=== PATIENT | female | born 1935 | race Caucasian/White ===

== ENCOUNTER 2020-12-18 08:31 | Inpatient (IN) | payer MEDICARE, OTHER ==
[2020-12-18] MEDS ORDERED: Lactated Ringers 1,000 ML IV SCH (09:00)
--- NOTE | 2020-12-18 09:34 | CR ---
Indication: Weakness Comparison: None available. Technique: Single AP view chest Findings: There is hyperinflation and chronic interstitial change. There is basilar atelectasis and parenchymal scar without dense consolidation, effusion or pneumothorax. The cardiac silhouette is mildly prominent. The bony thorax is grossly intact. Impression: Hyperinflation and chronic interstitial changes with basilar atelectasis and/or parenchymal scar without evidence of dense consolidation. Dictated by Tae Bueno MD @ 12/18/2020 9:33:04 AM (Electronically Signed)
[2020-12-18 09:48] LABS: BLOOD UREA NITROGEN,BUN 18 mg/dL (7.0-18.0); CHLORIDE,CL 103 mmol/L (98-107); GLUCOSE RANDOM 125 mg/dL (74-106); POTASSIUM,K 4.2 mmol/L (3.5-5.1); SODIUM,NA 138 mmol/L (136-145)
[2020-12-18] MEDS ORDERED: Famotidine 20 MG/2 ML SDV IVPUSH ONE (10:26)
[2020-12-18] MEDS ORDERED: Pantoprazole 80 MG in Sodium Chloride 0.9% 20 ML IVPUSH ONE (10:26)
--- NOTE | 2020-12-18 10:53 | EDM.PDOC ---
ED HPI GENERAL MEDICAL PROBLEM - General Chief Complaint: General Stated Complaint: EMS Time Seen by Provider: 12/18/20 08:43 - History of Present Illness INITIAL COMMENTS - FREE TEXT/NARRATIVE: CHIEF COMPLAINT(S): "I do not know." HISTORY OF PRESENT ILLNESS: This is a 85-year-old man without any significant past medical history who has not been evaluated by a physician in approximately 50 years who comes to the emergency department with a chief complaint of "I do not know." The patient states that she does not know why she is here in the emergency department. She states that she has been getting weak and this morning she was unable to walk. She states that has been progressive for approximately 1 month. She states that she has not had any increased weight loss and states that her appetite is not changed. She states that she has not had any falls denies any head injury, loss of consciousness. She denies any chest pain or any pain at all throughout her body. She denies any numbness or tingling, urinary incontinence, bowel incontinence or saddle anesthesia. She denies any recent travel recent surgery or prior history of DVT or PE. She states that she is not any medications and overall feels well except that she just cannot walk. REVIEW OF SYSTEMS: Constitutional: Positive for weakness denies fever, chills. Eyes: Denies eye pain Ears, Nose, Mouth, & Throat: Denies earache Cardiovascular: Denies chest pain Respiratory: Denies shortness of breath Gastrointestinal: Denies Nausea, vomiting, diarrhea, hematochezia. Genitourinary: Denies hematuria Skin:Denies a rash MSK: Positive for decreased ability to walk. Denies joint pain Neurological: Denies blurred vision, numbness, tingling, trouble speaking, trouble swallowing Psychiatric: Denies depression PAST MEDICAL HISTORY: As per history of present illness and as reviewed below otherwise noncontributory. SURGICAL HISTORY: As per history of present illness and as reviewed below otherwise noncontributory. SOCIAL HISTORY: As per history of present illness and as reviewed below otherwise noncontributory. FAMILY HISTORY: As per history of present illness and as reviewed below otherwise noncontributory. EXAMINATION OF ORGAN SYSTEMS/BODY AREAS: Constitutional: Blood pressure is 128/44, heart rate 106, respiratory rate 20 with an oxygen saturation of 100% on room air. Temperature 35.8 General: Pale appearing elderly woman who is in no acute distress Psychiatric: Appropriate mood and affect. Eyes: No scleral icterus or conjunctival erythema pupils are equal round and reactive to light. Extraocular movements intact. No nystagmus. Conjunctiva is pale. ENMT: Moist mucous membranes. No pharyngeal erythema tongue protrudes midline. Cardiovascular: Tachycardic but regular no gallops, murmurs, or rubs. Bilateral upper extremity pulses symmetric and intact. No peripheral edema. No JVD. Respiratory: Lungs clear to auscultation bilaterally. No wheezes, rales, or rhonchi. Gastrointestinal: Soft, non-tender, non-distended. Normoactive bowel sounds Genitourinary: No suprapubic tenderness Musculoskeletal: Normal range of motion. Skin: No lesions or abrasions. Neurological: AOx4. CN grossly intact. Stregth 5/5 in bilateral upper and lower extremity. Sensation is intact bilaterally in upper and lower extremity. Finger to nose, heel to blevins, rapid alternating movements intact. MEDICAL DECISION MAKING AND COURSE IN THE ED WITH INTERPRETATION/REVIEW OF DIAGNOSTIC STUDIES: This is a 85-year-old woman without any reported past medical history who has not visited with a physician in approximately 50 years who comes to the emergency department with acute weakness with decreased ability to walk. At this time the patient is neurologically intact. The patient is tachycardic. At this time differential remains broad including ACS, hypothyroidism, GI bleed, malignancy. Will obtain labs including CBC, CMP, Covid, CPK, urine drug screen, serum drug screen and coags. Will obtain a urinalysis. At this time other than the tachycardia it is uncertain as to what is causing her weakness therefore we will provide the patient with 1 L of lactated Ringer's bolus. We will reevaluate after labs and imaging including a chest x-ray. EKG was obtained which did not reveal any acute signs of ischemia. Cardiac monitoring at this time did reveal sinus tachycardia and pulse oximetry with good waveform was 100% on room air. Laboratory: CBC reveals a leukocytosis of 18.21 with segmented neutrophils, hemoglobin of 4.2 and hematocrit of 16.3 with thrombocytopenia at 42. There is increased polychromasia, poikilocytosis, target cells, teardrop cells and elliptocytes. INR is normal. CMP reveals hypocalcemia at 7.6, hyperbilirubinemia at 1.1 and hypoalbuminemia at 2.7 otherwise unremarkable. CPK is normal. Troponin is negative. Serum alcohol level is negative. Covid is negative. The radiological images were viewed by myself along with reading the report from the radiologist. Chest x-ray reveals hyperinflation and chronic interstitial changes with basilar atelectasis without consolidation. After labs I did have a discussion with the patient that I would need to perform a rectal examination. Rectal examination was performed with RN mercerizer in presence. The patient did have dried blood in her panties. There did not appear to be any bleeding from her vagina and she denied any vaginal bleeding. Rectal examination did reveal guaiac positive stool and red stool. Rectal tone was appropriate. Given her hemoglobin and positive stool I did discuss with patient that I do believe she is experiencing a GI bleed versus a malignancy given her laboratory results. I did discuss blood transfusion with her at this time. She was amenable to this and did complete a consent form. Therefore I ordered 2 units of PRBCs and 1 of platelets. Will obtain a CT abdomen pelvis for further evaluation. I did discuss admission with the patient at this time and she was amenable to this plan. The radiological images were viewed by myself along with reading the report from the radiologist. CT abdomen pelvis with contrast reveals wall thickening of the rectum with prominent surrounding inflammatory fat stranding and free fluid suggesting proctitis. Enhancement within the anal canal which could possibly represent internal hemorrhoids. There is mild hepatomegaly with diffuse hepatic steatosis. Moderate splenomegaly with multiple small low-attenuation lesions. An underlying lymphoproliferative process cannot be excluded. There is a 1.3 cystic lesion in the right adnexa and small bilateral pleural effusions and diffuse wall edema. After imaging I did contact Dr. Robb who accepted the patient for admission. I did have a discussion with the patient at bedside regarding the differential di agnosis including possible need for colonoscopy and bone marrow biopsy. She states that she just wants to live as she has always lived and probably likely will not get these procedures completed however she was still amenable to blood transfusion and admission at this time this was communicated with Dr. Robb. DISPOSITION: Patient was admitted to the hospital in stable condition CONDITION: Serious PROCEDURES: None FINAL IMPRESSION(S)/DIAGNOSES: 1. Acute blood loss anemia secondary to GI bleed versus proctitis 2. Acute leukocytosis, possibly secondary to malignancy 3. Acute thrombocytopenia 4. Hypoalbuminemia secondary to protein calorie malnutrition Critical Care Procedure Note Authorized and performed by: Leroy Garcia M.D. Critical Care Time: 45 minutes Due to a high probability of clinically significant, life threatening deterioration, the patient required my highest level of preparedness to intervene emergently and I personally spent this critical care time directly and personally managing the patient. This critical care time included obtaining a history, examining the patient, pulse oximetry; ordering and review of studies; arranging urgent treatment with development of a management plan; evaluation of a patients reponse to treatment; frequent assessment; and discussions with other providers. This critical care time was performed to assess and manage the high probability of imminent, life threatening deterioration that could result in multiorgan failure. It was exclusive of separate billable procedures and treating other patients. Please see MDM section and rest of the note for further information on patient assessment and treatment. Please see MDM section and rest of the note for further information on patient assessment and treatment. Leroy Garcia M.D. - Related Data Allergies Allergy/AdvReac Type Severity Reaction Status Date / Time No Known Allergies Allergy Verified 12/18/20 15:55 Home Meds: Home Meds . [No Known Home Meds] 12/18/20 [History] Social & Family History - Tobacco Use Second Hand Smoke Exposure: No - Caffeine Use Caffeine Use: Reports: None - Recreational Drug Use Recreational Drug Use: No ED ROS GENERAL - Review of Systems Review Of Systems: See Below ED EXAM, GENERAL - Physical Exam Exam: See Below Course - Vital Signs Last Recorded V/S: Last Vital Signs Temp 36.9 C 12/18/20 17:27 Pulse 67 12/18/20 17:27 Resp 16 12/18/20 17:27 BP 112/52 L 12/18/20 17:27 Pulse Ox 95 12/18/20 17:27 - Orders/Labs/Meds Orders: Active Orders 24 hr Category Date Time Status Verify Patient Consent Obtain [RC] ASDIRECTED Care 12/18/20 10:10 Active Verify Patient Consent Obtain [RC] ASDIRECTED Care 12/18/20 10:10 Active PLATELETS [facility] [BBK] Stat Lab 12/18/20 10:22 Results RED BLOOD CELLS LP [BBK] Stat Lab 12/18/20 10:22 Results TYPE AND SCREEN [BBK] Stat Lab 12/18/20 10:22 Results Transfuse Platelets [COMM] Stat Ot 12/18/20 10:09 Ordered Transfuse Red Blood Cells [COMM] Stat Ot 12/18/20 10:09 Ordered Medication Orders Dextrose/Water (50% Dextrose In Water 50 Ml Syringe) 50 ml IVPUSH ASDIRECTED PRN PRN Reason: Hypoglycemia Glucagon (Glucagon,Human Recombinant 1 Mg Vial) 1 mg IM ASDIRECTED PRN PRN Reason: Hypoglycemia Ceftriaxone Sodium/Dextrose 1 (gm/ Premix) 50 mls @ 100 mls/hr IV Q24H ARCHANA Last Admin: 12/18/20 18:20 Dose: 100 mls/hr Documented by: PUEPBRI Pantoprazole Sodium 40 mg/ (Sodium Chloride) 10 mls @ 300 mls/hr IV Q24H [facility] Labs: Laboratory Tests 12/18/20 12/18/20 12/18/20 Range/Units 08:40 08:40 08:40 WBC 18.21 H (4.0-11.0) K/uL RBC 2.38 L (4.30-5.90) M/uL Hgb 4.2 L* (12.0-16.0) g/dL Hct 16.3 L (36.0-46.0) % MCV 68.5 L (80.0-98.0) fL MCH 17.6 L (27.0-32.0) pg MCHC 25.8 L (31.0-37.0) g/dL RDW Std Deviation 56.9 (28.0-62.0) fl RDW Coeff of Chuy 24 H (11.0-15.0) % Plt Count 42 L (150-400) K/uL Add Manual Diff YES Neutrophils % (Manual) 76 (48.0-80.0) % Band Neutrophils % 6 % Lymphocytes % (Manual) 14 L (16.0-40.0) % Monocytes % (Manual) 4 (0.0-15.0) % Nucleated RBC % 7.6 /100WBC Absolute Seg Neuts 13.8 H (1.4-5.7) Band Neutrophils # 1.1 Lymphocytes # (Manual) 2.5 H (0.6-2.4) Monocytes # (Manual) 0.7 (0.0-0.8) Nucleated RBCs # 1 K/uL Platelet Estimate DECREASED Polychromasia 2+ MODERATE Poikilocytosis 3+ MARKED Target Cells 1+ SLIGHT Tear Drop Cells 2+ MODERATE Elliptocytes 1+ SLIGHT INR 1.17 Sodium 138 (136-145) mmol/L Potassium 4.2 (3.5-5.1) mmol/L Chloride 103 (98-107) mmol/L Carbon Dioxide 24.0 (21.0-32.0) mmol/L BUN 18 (7.0-18.0) mg/dL Creatinine 0.8 (0.6-1.0) mg/dL Est Cr Clr Drug Dosing 41.57 mL/min Estimated GFR (MDRD) > 60.0 ml/min Glucose 125 H (74-106) mg/dL Calcium 7.6 L (8.5-10.1) mg/dL Magnesium 2.1 (1.8-2.4) mg/dL Total Bilirubin 1.1 H (0.2-1.0) mg/dL AST 13 L (15-37) IU/L ALT 12 L (14-63) IU/L Alkaline Phosphatase 78 (46-116) U/L Creatine Kinase 49 (26-308) U/L Troponin I < 0.050 (0.000-0.056) ng/mL Total Protein 6.3 L (6.4-8.2) g/dL Albumin 2.7 L (3.4-5.0) g/dL Globulin 3.6 (2.6-4.0) g/dL Albumin/Globulin Ratio 0.8 L (0.9-1.6) TSH, Ultra Sensitive 3.61 (0.36-3.74) uIU/mL Ethyl Alcohol <3 mg/dL SARS-CoV-2 RNA (HEMAL) (NEGATIVE) Blood Type Antibody Screen Crossmatch 12/18/20 12/18/20 Range/Units 10:22 10:30 WBC (4.0-11.0) K/uL RBC (4.30-5.90) M/uL Hgb (12.0-16.0) g/dL Hct (36.0-46.0) % MCV (80.0-98.0) fL MCH (27.0-32.0) pg MCHC (31.0-37.0) g/dL RDW Std Deviation (28.0-62.0) fl RDW Coeff of Chuy (11.0-15.0) % Plt Count (150-400) K/uL Add Manual Diff Neutrophils % (Manual) (48.0-80.0) % Band Neutrophils % % Lymphocytes % (Manual) (16.0-40.0) % Monocytes % (Manual) (0.0-15.0) % Nucleated RBC % /100WBC Absolute Seg Neuts (1.4-5.7) Band Neutrophils # Lymphocytes # (Manual) (0.6-2.4) Monocytes # (Manual) (0.0-0.8) Nucleated RBCs # K/uL Platelet Estimate Polychromasia Poikilocytosis Target Cells Tear Drop Cells Elliptocytes INR Sodium (136-145) mmol/L Potassium (3.5-5.1) mmol/L Chloride (98-107) mmol/L Carbon Dioxide (21.0-32.0) mmol/L BUN (7.0-18.0) mg/dL Creatinine (0.6-1.0) mg/dL Est Cr Clr Drug Dosing mL/min Estimated GFR (MDRD) ml/min Glucose (74-106) mg/dL Calcium (8.5-10.1) mg/dL Magnesium (1.8-2.4) mg/dL Total Bilirubin (0.2-1.0) mg/dL AST (15-37) IU/L ALT (14-63) IU/L Alkaline Phosphatase (46-116) U/L Creatine Kinase (26-308) U/L Troponin I (0.000-0.056) ng/mL Total Protein (6.4-8.2) g/dL Albumin (3.4-5.0) g/dL Globulin (2.6-4.0) g/dL Albumin/Globulin Ratio (0.9-1.6) TSH, Ultra Sensitive (0.36-3.74) uIU/mL Ethyl Alcohol mg/dL SARS-CoV-2 RNA (HEMAL) NEGATIVE (NEGATIVE) Blood Type A POSITIVE Antibody Screen NEGATIVE Crossmatch See Detail Meds: Medications Generic Name Dose Route Start Last Admin Trade Name Freq PRN Reason Stop Dose Admin Dextrose/Water 50 ml 12/18/20 16:35 50% Dextrose In Water 50 Ml Syringe IVPUSH ASDIRECTED PRN Hypoglycemia Glucagon 1 mg 12/18/20 16:35 Glucagon,Human Recombinant 1 Mg Vial IM ASDIRECTED PRN Hypoglycemia Ceftriaxone Sodium/Dextrose 1 50 mls @ 100 mls/hr 12/18/20 18:00 12/18/20 18:20 gm/ Premix IV 100 mls/hr Q24H ARCHANA Administration Pantoprazole Sodium 40 mg/ 10 mls @ 300 mls/hr 12/19/20 09:00 Sodium Chloride IV Q24H ARCHANA Discontinued Medications Generic Name Dose Route Start Last Admin Trade Name Froy PRN Reason Stop Dose Admin Famotidine 20 mg 12/18/20 10:26 12/18/20 10:36 Famotidine 20 Mg/2 Ml Sdv IVPUSH 12/18/20 10:27 20 mg ONETIME ONE Administration Lactated Ringer's 1,000 mls @ 999 mls/hr 12/18/20 09:00 12/18/20 09:03 Ringers, Lactated IV 999 mls/hr ASDIRECTED ARCHANA Administration Pantoprazole Sodium 80 mg/ 20 mls @ 420 mls/hr 12/18/20 10:26 12/18/20 10:36 Sodium Chloride IVPUSH 12/18/20 10:28 420 mls/hr ONETIME ONE Administration Insulin Aspart 0 unit 12/18/20 17:00 12/18/20 17:33 Insulin Aspart 100 Units/Ml 3 Ml Pen SUBCUT Not Given TIDAC [facility] Protocol Iopamidol 100 ml 12/18/20 12:21 12/18/20 12:22 Iopamidol 755 Mg/Ml 500 Ml Multipack Bottle IVPUSH 12/18/20 12:22 100 ml ONETIME STA Administration Departure - Departure Time of Disposition: 13:30 Disposition: Admitted As Inpatient 65 Condition: Serious Clinical Impression: Thrombocytopenia, Anemia - Discharge Information Sepsis Event Note (ED) - Evaluation Sepsis Screening Result: No Definite Risk - Focused Exam Vital Signs: Vital Signs Temp Pulse Resp BP Pulse Ox 12/18/20 09:05 35.8 C L 106 H 20 128/44 L 100 - My Orders Last 24 Hours: My Active Orders 12/18/20 10:09 Transfuse Platelets [COMM] Stat Transfuse Red Blood Cells [COMM] Stat 12/18/20 10:10 Verify Patient Consent Obtain [RC] ASDIRECTED Verify Patient Consent Obtain [RC] ASDIRECTED 12/18/20 10:22 [facility]TS [facility] [BBK] Stat RED BLOOD CELLS LP [BBK] Stat TYPE AND SCREEN [BBK] Stat - Assessment/Plan Last 24 Hours: My Active Orders 12/18/20 10:09 Transfuse Platelets [COMM] Stat Transfuse Red Blood Cells [COMM] Stat 12/18/20 10:10 Verify Patient Consent Obtain [RC] ASDIRECTED Verify Patient Consent Obtain [RC] ASDIRECTED 12/18/20 10:22 PL[facility]LETS [facility] [BBK] Stat RED BLOOD CELLS LP [BBK] Stat TYPE AND SCREEN [BBK] Stat
--- NOTE | 2020-12-18 10:54 | PCM.EKG ---
#1 Interpretation EKG Date: 12/18/20 Time: 08:53 Rhythm: NSR Rate (Beats/Min): 110 Vail: LAD-Left Vail Deviation P-Wave: Present QRS: Normal ST-T: Normal QT: Normal Comparison: NA - No Prior EKG EKG Interpretation Comments: Sinus Tachycardia
[2020-12-18] MEDS ORDERED: Iopamidol 755 MG/ML 500 ML Multipack Bottle IVPUSH STA (12:21)
--- NOTE | 2020-12-18 13:28 | CT ---
INDICATION: GI bleed, anemia. TECHNIQUE: CT of the abdomen and pelvis with 100 cc Isovue 370 IV contrast. Coronal and sagittal reconstructions. COMPARISON: None. FINDINGS: The liver is mildly enlarged measuring 19.1 cm in length. Diffuse hepatic steatosis. Few small low-attenuation lesions in the liver have the appearance of cysts. The spleen is moderately enlarged measuring 16.2 cm in length. There are multiple small low-attenuation lesions throughout the spleen which are too small to characterize. Splenule. The gallbladder, pancreas, and adrenal glands are negative. Hepatic and portal veins are patent. Symmetric enhancement of the kidneys. Small low-attenuation lesion in the right kidney most likely represents a cyst. No hydronephrosis or ureteral dilation. No obstructing urinary calculi identified. Small phlebolith adjacent to the distal left ureter. Distended urinary bladder. The uterus is normal in appearance. There is a 1.3 cm cystic lesion in the right adnexa (series 201, image 126). No abnormality in the left adnexa. Mild wall thickening of the gastric antrum could be inflammatory. No small bowel dilation. Sigmoid diverticulosis without evidence of diverticulitis. Scattered hyperdensities throughout sigmoid colon could be related to stool. Wall thickening of the rectum with prominent surrounding inflammatory fat stranding and free fluid suggesting proctitis (series 201 image 145). Enhancement within the anal canal could possibly represent internal hemorrhoids. No pneumatosis or intraperitoneal free air. The appendix is not identified. Aortoiliac vascular calcifications. Circumaortic left renal vein. No lymphadenopathy. Probable sebaceous cyst in the left mons pubis. Diffuse body wall edema. The bones are unremarkable. Small bilateral pleural effusions and mild bibasilar atelectasis. Interlobular septal thickening in the lung bases likely due to edema. The heart is mildly prominent in size. IMPRESSION: 1. Wall thickening of the rectum with prominent surrounding inflammatory fat stranding and free fluid suggests proctitis. Enhancement within the anal canal which could possibly represent internal hemorrhoids. 2. Mild hepatomegaly with diffuse hepatic steatosis. 3. Moderate splenomegaly with multiple small low-attenuation lesions. An underlying lymphoproliferative process cannot be excluded. 4. 1.3 cm cystic lesion in the right adnexa. 5. Small bilateral pleural effusions and diffuse body wall edema. Please note that all CT scans at this facility use dose modulation, iterative reconstruction, and/or weight-based dosing when appropriate to reduce radiation dose to as low as reasonably achievable. Dictated by Juanita Paredes MD @ 12/18/2020 1:26:55 PM (Electronically Signed)
[2020-12-18] MEDS ORDERED: Glucagon,Human Recombinant 1 MG Vial IM PRN (16:35)
[2020-12-18] MEDS ORDERED: 50% Dextrose in Water 50 ML Syringe IVPUSH PRN (16:35)
[2020-12-18] MEDS ORDERED: Insulin Aspart 100 Units/ML 3 ML Pen SUBCUT SCH (17:00)
--- NOTE | 2020-12-18 18:06 | PCM.HP.2 ---
H&P History of Present Illness - General Date of Service: 12/18/20 Admit Problem/Dx: Admission Diagnosis/Problem Admission Diagnosis/Problem Anemia due to blood loss - History of Present Illness Initial Comments - Free Text/Narative: The patient is an 85-year-old female on day one of service who was admitted to the hospital due to a decreased hemoglobin of 4.2, a decreased hematocrit of 16.3, a decreased platelet count of 42, and increased white blood cell count of 18.21. Upon interview today the patient admits for the past 3 months she has been having difficulty walking which has progressed to the point where yesterday she was no longer able to walk by herself and needed support by her . She says that when she stands from a seated position she starts to feel dizzy, and also feels dizzy upon exertion. She denies any chest pain, palpitations, shortness of breath, abdominal pain, headaches, or any issues with urination and/or defecation. Her chest x-ray shows hyperinflation, and chronic interstitial changes consistent with basilar atelectasis. Her EKG shows sinus tachycardia. Her abdominal CT shows an enlarged liver with diffuse hepatic steatosis, liver cysts, moderate enlargement of the cyst 16.2 cm in length, a right kidney cyst with no hydronephrosis or ureter dilation, a distended urinary bladder, a cystic lesion in the right adnexa, mild wall thickening of the gastric antrum, sigmoid diverticulosis, proctitis, and bilateral small pleural effusions. Her CBC shows a white blood cell of 18.21, hemoglobin of 4.2, hematocrit of 16.3, platelets of 42. Her CMP shows abnormal values for glucose of 125, calcium of 7.6, AST of 13, ALT of 12, albumin 2.7 Her urine analysis shows large occult blood, positive nitrite, moderate leukocyte esterase. In the emergency room the patient received famotidine once 20 mg IV, pantoprazole once 80 mg IV, a lactated Ringer's bolus of 1000 mL, and orders for 2 units of red blood cells to be transfused. Both have been administered, one order of platelets is also to be transfused but will not occur until tomorrow morning. - Related Data Allergies/Adverse Reactions: Allergies Allergy/AdvReac Type Severity Reaction Status Date / Time No Known Allergies Allergy Verified 12/18/20 15:55 Home Medications: Home Meds . [No Known Home Meds] 12/18/20 [History] Past Medical History HEENT History: Reports: Other (See Below) Other HEENT History: pt. states she thinks she has cataract to left eye that is blurring her vision Gastrointestinal History: Reports: None - Infectious Disease History Infectious Disease History: Reports: None - Past Surgical History GI Surgical History: Reports: Appendectomy Social & Family History - Family History Other Cardiac Family History: dad had heart attack - Tobacco Use Tobacco Use Status *Q: Former Tobacco User Used Tobacco, but Quit: Yes Month/Year Tobacco Last Used: 03/1959 Second Hand Smoke Exposure: No - Caffeine Use Caffeine Use: Reports: Coffee, Soda - Recreational Drug Use Recreational Drug Use: No H&P Review of Systems - Review of Systems: Review Of Systems: See Below General: Denies: Fever, Chills, Fatigue Pulmonary: Denies: Shortness of Breath, Wheezing, Pleuritic Chest Pain, Cough Cardiovascular: Denies: Chest Pain, Palpitations, Dyspnea on Exertion Gastrointestinal: Denies: Abdominal Pain Genitourinary: Denies: Dysuria, Frequency, Burning, Pain Psychiatric: Denies: Confusion Neurological: Reports: Dizziness Exam - Exam Exam: See Below - Vital Signs Vital Signs: Last Vital Signs Temp 98.5 F 12/18/20 17:27 Pulse 67 12/18/20 17:27 Resp 16 12/18/20 17:27 BP 112/52 L 12/18/20 17:27 Pulse Ox 95 12/18/20 17:27 Weight: 102 lb 8 oz - Exam General: Alert, Oriented, Cooperative HEENT: Mucosa Moist & [place] Neck: Trachea Midline Lungs: Clear to Auscultation, Normal Respiratory Effort, Decreased Breath Sounds Cardiovascular: Regular Rate, Regular Rhythm GI/Abdominal Exam: Normal Bowel Sounds, Soft, Non-Tender, No Organomegaly - Patient Data Lab Results Last 24 hrs: Laboratory Results - last 24 hr 12/18/20 12/18/20 12/18/20 Range/Units 08:40 08:40 08:40 WBC 18.21 H (4.0-11.0) K/uL RBC 2.38 L (4.30-5.90) M/uL Hgb 4.2 L* (12.0-16.0) g/dL Hct 16.3 L (36.0-46.0) % MCV 68.5 L (80.0-98.0) fL MCH 17.6 L (27.0-32.0) pg MCHC 25.8 L (31.0-37.0) g/dL RDW Std Deviation 56.9 (28.0-62.0) fl RDW Coeff of [place] 24 H (11.0-15.0) % Plt Count 42 L (150-400) K/uL Add Manual Diff YES Neutrophils % (Manual) 76 (48.0-80.0) % Band Neutrophils % 6 % Lymphocytes % (Manual) 14 L (16.0-40.0) % Monocytes % (Manual) 4 (0.0-15.0) % Nucleated RBC % 7.6 /100WBC Absolute Seg Neuts 13.8 H (1.4-5.7) Band Neutrophils # 1.1 Lymphocytes # (Manual) 2.5 H (0.6-2.4) Monocytes # (Manual) 0.7 (0.0-0.8) Nucleated RBCs # 1 K/uL Platelet Estimate DECREASED Polychromasia 2+ MODERATE Poikilocytosis 3+ MARKED Target Cells 1+ SLIGHT Tear Drop Cells 2+ MODERATE Elliptocytes 1+ SLIGHT INR 1.17 Sodium 138 (136-145) mmol/L Potassium 4.2 (3.5-5.1) mmol/L Chloride 103 (98-107) mmol/L Carbon Dioxide 24.0 (21.0-32.0) mmol/L BUN 18 (7.0-18.0) mg/dL Creatinine 0.8 (0.6-1.0) mg/dL Est Cr Clr Drug Dosing 41.57 mL/min Estimated GFR (MDRD) > 60.0 ml/min Glucose 125 H (74-106) mg/dL Calcium 7.6 L (8.5-10.1) mg/dL Magnesium 2.1 (1.8-2.4) mg/dL Total Bilirubin 1.1 H (0.2-1.0) mg/dL AST 13 L (15-37) IU/L ALT 12 L (14-63) IU/L Alkaline Phosphatase 78 (46-116) U/L Creatine Kinase 49 (26-308) U/L Troponin I < 0.050 (0.000-0.056) ng/mL Total Protein 6.3 L (6.4-8.2) g/dL Albumin 2.7 L (3.4-5.0) g/dL Globulin 3.6 (2.6-4.0) g/dL Albumin/Globulin Ratio 0.8 L (0.9-1.6) TSH, Ultra Sensitive 3.61 (0.36-3.74) uIU/mL Urine Color Urine Appearance Urine pH (5.0-8.0) Ur Specific [place] (1.001-1.035) Urine Protein (NEGATIVE) mg/dL Urine Glucose (UA) (NEGATIVE) mg/dL Urine Ketones (NEGATIVE) mg/dL Urine Occult Blood (NEGATIVE) Urine Nitrite (NEGATIVE) Urine Bilirubin (NEGATIVE) Urine Urobilinogen (<2.0) EU/dL Ur Leukocyte Esterase (NEGATIVE) Urine RBC (0-2/HPF) Urine WBC (0-5/HPF) Ur Epithelial Cells (NONE-FEW) Urine Bacteria (NEGATIVE) Urine Mucus (NONE-MOD) Urine Opiates Screen (NEGATIVE) Ur Oxycodone Screen (NEGATIVE) Urine Methadone Screen (NEGATIVE) Ur Barbiturates Screen (NEGATIVE) Ur Phencyclidine Scrn (NEGATIVE) Ur Amphetamine Screen (NEGATIVE) U Methamphetamines Scrn (NEGATIVE) U Benzodiazepines Scrn (NEGATIVE) U Cocaine Metab Screen (NEGATIVE) U Marijuana (THC) Screen (NEGATIVE) Ethyl Alcohol <3 mg/dL SARS-CoV-2 RNA (HEMAL) (NEGATIVE) Blood Type Antibody Screen Crossmatch 12/18/20 12/18/20 12/18/20 Range/Units 10:22 10:30 14:50 WBC (4.0-11.0) K/uL RBC (4.30-5.90) M/uL Hgb (12.0-16.0) g/dL Hct (36.0-46.0) % MCV (80.0-98.0) fL MCH (27.0-32.0) pg MCHC (31.0-37.0) g/dL RDW Std Deviation (28.0-62.0) fl RDW Coeff of [place] (11.0-15.0) % Plt Count (150-400) K/uL Add Manual Diff Neutrophils % (Manual) (48.0-80.0) % Band Neutrophils % % Lymphocytes % (Manual) (16.0-40.0) % Monocytes % (Manual) (0.0-15.0) % Nucleated RBC % /100WBC Absolute Seg Neuts (1.4-5.7) Band Neutrophils # Lymphocytes # (Manual) (0.6-2.4) Monocytes # (Manual) (0.0-0.8) Nucleated RBCs # K/uL Platelet Estimate Polychromasia Poikilocytosis Target Cells Tear Drop Cells Elliptocytes INR Sodium (136-145) mmol/L Potassium (3.5-5.1) mmol/L Chloride (98-107) mmol/L Carbon Dioxide (21.0-32.0) mmol/L BUN (7.0-18.0) mg/dL Creatinine (0.6-1.0) mg/dL Est Cr Clr Drug Dosing mL/min Estimated GFR (MDRD) ml/min Glucose (74-106) mg/dL Calcium (8.5-10.1) mg/dL Magnesium (1.8-2.4) mg/dL Total Bilirubin (0.2-1.0) mg/dL AST (15-37) IU/L ALT (14-63) IU/L Alkaline Phosphatase (46-116) U/L Creatine Kinase (26-308) U/L Troponin I (0.000-0.056) ng/mL Total Protein (6.4-8.2) g/dL Albumin (3.4-5.0) g/dL Globulin (2.6-4.0) g/dL Albumin/Globulin Ratio (0.9-1.6) TSH, Ultra Sensitive (0.36-3.74) uIU/mL Urine Color YELLOW Urine Appearance CLOUDY Urine pH 6.0 (5.0-8.0) Ur Specific [place] 1.015 (1.001-1.035) Urine Protein TRACE H (NEGATIVE) mg/dL Urine Glucose (UA) NEGATIVE (NEGATIVE) mg/dL Urine Ketones NEGATIVE (NEGATIVE) mg/dL Urine Occult Blood LARGE H (NEGATIVE) Urine Nitrite POSITIVE H (NEGATIVE) Urine Bilirubin NEGATIVE (NEGATIVE) Urine Urobilinogen 1.0 (<2.0) EU/dL Ur Leukocyte Esterase MODERATE H (NEGATIVE) Urine RBC 1-3 (0-2/HPF) Urine WBC 6-9 (0-5/HPF) Ur Epithelial Cells OCCASIONAL (NONE-FEW) Urine Bacteria 2+ H (NEGATIVE) Urine Mucus LIGHT (NONE-MOD) Urine Opiates Screen (NEGATIVE) Ur Oxycodone Screen (NEGATIVE) Urine Methadone Screen (NEGATIVE) Ur Barbiturates Screen (NEGATIVE) Ur Phencyclidine Scrn (NEGATIVE) Ur Amphetamine Screen (NEGATIVE) U Methamphetamines Scrn (NEGATIVE) U Benzodiazepines Scrn (NEGATIVE) U Cocaine Metab Screen (NEGATIVE) U Marijuana (THC) Screen (NEGATIVE) Ethyl Alcohol mg/dL SARS-CoV-2 RNA (HEMAL) NEGATIVE (NEGATIVE) Blood Type A POSITIVE Antibody Screen NEGATIVE Crossmatch See Detail 12/18/20 Range/Units 14:50 WBC (4.0-11.0) K/uL RBC (4.30-5.90) M/uL Hgb (12.0-16.0) g/dL Hct (36.0-46.0) % MCV (80.0-98.0) fL MCH (27.0-32.0) pg MCHC (31.0-37.0) g/dL RDW Std Deviation (28.0-62.0) fl RDW Coeff of [place] (11.0-15.0) % Plt Count (150-400) K/uL Add Manual Diff Neutrophils % (Manual) (48.0-80.0) % Band Neutrophils % % Lymphocytes % (Manual) (16.0-40.0) % Monocytes % (Manual) (0.0-15.0) % Nucleated RBC % /100WBC Absolute Seg Neuts (1.4-5.7) Band Neutrophils # Lymphocytes # (Manual) (0.6-2.4) Monocytes # (Manual) (0.0-0.8) Nucleated RBCs # K/uL Platelet Estimate Polychromasia Poikilocytosis Target Cells Tear Drop Cells Elliptocytes INR Sodium (136-145) mmol/L Potassium (3.5-5.1) mmol/L Chloride (98-107) mmol/L Carbon Dioxide (21.0-32.0) mmol/L BUN (7.0-18.0) mg/dL Creatinine (0.6-1.0) mg/dL Est Cr Clr Drug Dosing mL/min Estimated GFR (MDRD) ml/min Glucose (74-106) mg/dL Calcium (8.5-10.1) mg/dL Magnesium (1.8-2.4) mg/dL Total Bilirubin (0.2-1.0) mg/dL AST (15-37) IU/L ALT (14-63) IU/L Alkaline Phosphatase (46-116) U/L Creatine Kinase (26-308) U/L Troponin I (0.000-0.056) ng/mL Total Protein (6.4-8.2) g/dL Albumin (3.4-5.0) g/dL Globulin (2.6-4.0) g/dL Albumin/Globulin Ratio (0.9-1.6) TSH, Ultra Sensitive (0.36-3.74) uIU/mL Urine Color Urine Appearance Urine pH (5.0-8.0) Ur Specific [place] (1.001-1.035) Urine Protein (NEGATIVE) mg/dL Urine Glucose (UA) (NEGATIVE) mg/dL Urine Ketones (NEGATIVE) mg/dL Urine Occult Blood (NEGATIVE) Urine Nitrite (NEGATIVE) Urine Bilirubin (NEGATIVE) Urine Urobilinogen (<2.0) EU/dL Ur Leukocyte Esterase (NEGATIVE) Urine RBC (0-2/HPF) Urine WBC (0-5/HPF) Ur Epithelial Cells (NONE-FEW) Urine Bacteria (NEGATIVE) Urine Mucus (NONE-MOD) Urine Opiates Screen NEGATIVE (NEGATIVE) Ur Oxycodone Screen NEGATIVE (NEGATIVE) Urine Methadone Screen NEGATIVE (NEGATIVE) Ur Barbiturates Screen NEGATIVE (NEGATIVE) Ur Phencyclidine Scrn NEGATIVE (NEGATIVE) Ur Amphetamine Screen NEGATIVE (NEGATIVE) U Methamphetamines Scrn NEGATIVE (NEGATIVE) U Benzodiazepines Scrn NEGATIVE (NEGATIVE) U Cocaine Metab Screen NEGATIVE (NEGATIVE) U Marijuana (THC) Screen NEGATIVE (NEGATIVE) Ethyl Alcohol mg/dL SARS-CoV-2 RNA (HEMAL) (NEGATIVE) Blood Type Antibody Screen Crossmatch Result Diagrams: 12/18/20 08:40 12/18/20 08:40 Sepsis Event Note - Evaluation Sepsis Screening Result: No Definite Risk - Focused Exam Vital Signs: Vital Signs Temp Temp Pulse Resp BP Pulse Ox 12/18/20 17:27 98.5 F 67 16 112/52 L 95 12/18/20 17:12 98.8 F 90 16 109/55 L 96 12/18/20 15:30 98.5 F 68 14 129/68 99 12/18/20 09:05 96.4 F L 106 H 20 128/44 L 100 - Problem List (1) Anemia SNOMED Code(s): 991751324 ICD Code: D64.9 - ANEMIA, UNSPECIFIED Status: Acute Current Visit: Yes (2) Leukocytosis SNOMED Code(s): 101633938, 231772582 ICD Code: D72.829 - ELEVATED WHITE BLOOD CELL COUNT, UNSPECIFIED Status: Acute Current Visit: Yes (3) Thrombocytopenia SNOMED Code(s): 117947194 ICD Code: D69.6 - THROMBOCYTOPENIA, UNSPECIFIED Status: Acute Current Visit: Yes (4) UTI (urinary tract infection) SNOMED Code(s): 32950154 ICD Code: N39.0 - URINARY TRACT INFECTION, SITE NOT SPECIFIED Status: Acute Current Visit: Yes Problem List Initiated/Reviewed/Updated: Yes Orders Last 24hrs: Active Orders 24 hr Category Date Time Status Admission Status [Patient Status] [ADT] Stat ADT 12/18/20 13:30 Active Telemetry Monitoring [Cardiac Monitoring] [RC] Q8HR Care 12/18/20 13:30 Active Verify Patient Consent Obtain [RC] ASDIRECTED Care 12/18/20 10:10 Active Verify Patient Consent Obtain [RC] ASDIRECTED Care 12/18/20 10:10 Active Regular Diet [DIET] Diet 12/18/20 Dinner Active CBC WITH AUTO DIFF [HEME] AM Lab 12/19/20 05:11 Ordered CBC WITH AUTO DIFF [HEME] AM Lab 12/20/20 05:11 Ordered CBC WITH AUTO DIFF [HEME] AM Lab 12/21/20 05:11 Ordered CBC WITH AUTO DIFF [HEME] AM Lab 12/22/20 05:11 Ordered CMP [COMPREHENSIVE METABOLIC PN,CMP] [CHEM] AM Lab 12/19/20 05:11 Ordered CMP [COMPREHENSIVE METABOLIC PN,CMP] [CHEM] AM Lab 12/20/20 05:11 Ordered CMP [COMPREHENSIVE METABOLIC PN,CMP] [CHEM] AM Lab 12/21/20 05:11 Ordered CMP [COMPREHENSIVE METABOLIC PN,CMP] [CHEM] AM Lab 12/22/20 05:11 Ordered HEMOGLOBIN/HEMATOCRIT,HH [HEME] Routine Lab 12/18/20 21:00 Ordered PLATELETS APH [BBK] Stat Lab 12/18/20 10:22 Results RED BLOOD CELLS LP [BBK] Stat Lab 12/18/20 10:22 Results TYPE AND SCREEN [BBK] Stat Lab 12/18/20 10:22 Results Dextrose 50% in Water Med 12/18/20 16:35 Active 50 ml IVPUSH ASDIRECTED PRN Glucagon,Human Recombinant [GlucaGen] Med 12/18/20 16:35 Active 1 mg IM ASDIRECTED PRN Pantoprazole [ProTONIX IV] 40 mg Med 12/19/20 09:00 Active Sodium Chloride 0.9% [Normal Saline] 10 ml IV Q24H cefTRIAXone [Rocephin in Dextrose,Iso-Osm 1 GM/50 ML] 1 Med 12/18/20 18:00 Active gm Premix Bag 1 bag IV Q24H Transfuse PRBC [Transfuse Red Blood Cells] [COMM] Stat Ot 12/18/20 16:38 Ordered Transfuse Platelets [COMM] Stat Ot 12/18/20 10:09 Ordered Transfuse Red Blood Cells [COMM] Stat Ot 12/18/20 10:09 Ordered Medication Orders Dextrose/Water (50% Dextrose In Water 50 Ml Syringe) 50 ml IVPUSH ASDIRECTED PRN PRN Reason: Hypoglycemia Glucagon (Glucagon,Human Recombinant 1 Mg Vial) 1 mg IM ASDIRECTED PRN PRN Reason: Hypoglycemia Ceftriaxone Sodium/Dextrose 1 (gm/ Premix) 50 mls @ 100 mls/hr IV Q24H ARCHANA Pantoprazole Sodium 40 mg/ (Sodium Chloride) 10 mls @ 300 mls/hr IV Q24H ARCHANA Assessment/Plan Comment:: Admit the patient to the medical floor, activity up ad stewart, vitals per unit routine, GI prophylaxis with pantoprazole 40 mg once a day, full code, no DVT prophylaxis at this time due to pancytopenia. 1. Anemia -The patient has been transfused 1 unit of red blood cells in the emergency room and received a second dose while on the medical floor. -We will monitor the patient's hemoglobin and hematocrit at 9 PM on 12/18 to see her current levels, and to assess if more blood products are needed -CBC/CMP has been ordered for a.m. labs 2. Thrombocytopenia -The patient's platelet levels were decreased to 42, transfusion of platelets will occur tomorrow early in the morning, after being brought here from [place] -We will continue to monitor the patient's platelets through daily CBCs 3. Leukocytosis most likely secondary to UTI -The patient has been started on 1 g Rocephin every 24 hours -We will continue to monitor patient's white blood cell status with daily CBCs
[2020-12-18] MEDS: cefTRIAXone 1 GM in Premix Bag 1 BAG IV SCH (18:20)
[2020-12-19 06:50] LABS: BLOOD UREA NITROGEN,BUN 14 mg/dL (7.0-18.0); CARBON DIOXIDE,CO2 23.5 mmol/L (21.0-32.0); CHLORIDE,CL 107 mmol/L (98-107); GLUCOSE RANDOM 91 mg/dL (74-106); POTASSIUM,K 3.9 mmol/L (3.5-5.1); SODIUM,NA 140 mmol/L (136-145)
[2020-12-19] MEDS: Pantoprazole 40 MG in Sodium Chloride 0.9% 10 ML IV SCH (09:18)
[2020-12-19] MEDS ORDERED: SODIUM CHLORIDE 0.9% IV SCH (11:30)
[2020-12-19] MEDS ORDERED: IRON SUCROSE COMPLEX IV SCH (11:30)
--- NOTE | 2020-12-19 12:57 | PCM.PN ---
- General Info Date of Service: 12/19/20 Subjective Update: The patient is an 85-year-old female, on day 2 of service with no significant past medical history, who was admitted to the hospital for anemia, thrombocytopenia, and a urinary tract infection. Upon interview today the patient has no complaints of dizziness that she has had previously. She has no issues with urination and recalls that her last bowel movement was the night before last. She denies any suprapubic discomfort, frequency, urgency, or burning with urination, even though her lab parameters do show that she has a urinary tract infection. She is not complaining of any chest pain, palpitations, or other symptoms that may be seen with anemia and thrombocytopenia, and does not have any easy bleeding or bruising. The patient did receive 3 units of blood over the last 24 hours, and is to receive platelets this morning. Platelets are currently being thawed and will be provided to the patient shortly. She did have a blood smear done which represented an iron deficiency anemia. She has no other complaints at this time. - Review of Systems General: Denies: Fever, Fatigue, Chills HEENT: Denies: Headaches, Sore Throat Pulmonary: Denies: Shortness of Breath, Pleuritic Chest Pain, Cough, Sputum Cardiovascular: Denies: Chest Pain, Palpitations, Dyspnea on Exertion Gastrointestinal: Denies: Abdominal Pain Genitourinary: Denies: Dysuria, Frequency, Burning, Pain, Urgency Skin: Denies: Bruising - Patient Data Vitals - Most Recent: Last Vital Signs Temp 97.9 F 12/19/20 12:00 Pulse 98 12/19/20 12:00 Resp 17 12/19/20 12:00 BP 127/65 12/19/20 12:00 Pulse Ox 95 12/19/20 12:00 Weight - Most Recent: 102 lb 8 oz I&O - Last 24 Hours: Intake & Output 12/18/20 12/19/20 12/19/20 22:59 06:59 14:59 Intake Total 350 700 312 Output Total 415 Balance 350 285 312 Lab Results Last 24 Hours: Laboratory Results - last 24 hr 12/18/20 12/18/20 12/18/20 Range/Units 08:40 10:22 14:50 WBC (4.0-11.0) K/uL RBC (4.30-5.90) M/uL Hgb (12.0-16.0) g/dL Hct (36.0-46.0) % MCV (80.0-98.0) fL MCH (27.0-32.0) pg MCHC (31.0-37.0) g/dL RDW Std Deviation (28.0-62.0) fl RDW Coeff of [place] (11.0-15.0) % Plt Count (150-400) K/uL Add Manual Diff Neutrophils % (Manual) (48.0-80.0) % Lymphocytes % (Manual) (16.0-40.0) % Monocytes % (Manual) (0.0-15.0) % Basophils % (Manual) (0.0-1.5) % Metamyelocytes % % Nucleated RBC % /100WBC Absolute Seg Neuts (1.4-5.7) Lymphocytes # (Manual) (0.6-2.4) Monocytes # (Manual) (0.0-0.8) Basophils # (Manual) (0.0-0.1) Absolute Metamyelocyte Nucleated RBCs # K/uL Platelet Estimate Polychromasia Poikilocytosis Tear Drop Cells Elliptocytes Smear Path Review Absolute Retic (20-80) K/uL Percent Retic (0.5-1.5) % Immature Retic Fraction % Sodium (136-145) mmol/L Potassium (3.5-5.1) mmol/L Chloride (98-107) mmol/L Carbon Dioxide (21.0-32.0) mmol/L BUN (7.0-18.0) mg/dL Creatinine (0.6-1.0) mg/dL Est Cr Clr Drug Dosing mL/min Estimated GFR (MDRD) ml/min Glucose (74-106) mg/dL Calcium (8.5-10.1) mg/dL Iron 15 L (50-175) ug/dL TIBC 380 (250-450) ug/dL % Saturation 3.95 L (20-55) % Transferrin 266.0 Ferritin 26 (8-252) ng/mL Total Bilirubin (0.2-1.0) mg/dL AST (15-37) IU/L ALT (14-63) IU/L Alkaline Phosphatase (46-116) U/L Total Protein (6.4-8.2) g/dL Albumin (3.4-5.0) g/dL Globulin (2.6-4.0) g/dL Albumin/Globulin Ratio (0.9-1.6) Urine Color YELLOW Urine Appearance CLOUDY Urine pH 6.0 (5.0-8.0) Ur Specific [place] 1.015 (1.001-1.035) Urine Protein TRACE H (NEGATIVE) mg/dL Urine Glucose (UA) NEGATIVE (NEGATIVE) mg/dL Urine Ketones NEGATIVE (NEGATIVE) mg/dL Urine Occult Blood LARGE H (NEGATIVE) Urine Nitrite POSITIVE H (NEGATIVE) Urine Bilirubin NEGATIVE (NEGATIVE) Urine Urobilinogen 1.0 (<2.0) EU/dL Ur Leukocyte Esterase MODERATE H (NEGATIVE) Urine RBC 1-3 (0-2/HPF) Urine WBC 6-9 (0-5/HPF) Ur Epithelial Cells OCCASIONAL (NONE-FEW) Urine Bacteria 2+ H (NEGATIVE) Urine Mucus LIGHT (NONE-MOD) Urine Opiates Screen (NEGATIVE) Ur Oxycodone Screen (NEGATIVE) Urine Methadone Screen (NEGATIVE) Ur Barbiturates Screen (NEGATIVE) Ur Phencyclidine Scrn (NEGATIVE) Ur Amphetamine Screen (NEGATIVE) U Methamphetamines Scrn (NEGATIVE) U Benzodiazepines Scrn (NEGATIVE) U Cocaine Metab Screen (NEGATIVE) U Marijuana (THC) Screen (NEGATIVE) Blood Type A POSITIVE Antibody Screen NEGATIVE Crossmatch See Detail 12/18/20 12/18/20 12/18/20 Range/Units 14:50 16:37 16:37 WBC (4.0-11.0) K/uL RBC 2.85 L (4.30-5.90) M/uL Hgb (12.0-16.0) g/dL Hct (36.0-46.0) % MCV (80.0-98.0) fL MCH (27.0-32.0) pg MCHC (31.0-37.0) g/dL RDW Std Deviation (28.0-62.0) fl RDW Coeff of [place] (11.0-15.0) % Plt Count (150-400) K/uL Add Manual Diff Neutrophils % (Manual) (48.0-80.0) % Lymphocytes % (Manual) (16.0-40.0) % Monocytes % (Manual) (0.0-15.0) % Basophils % (Manual) (0.0-1.5) % Metamyelocytes % % Nucleated RBC % /100WBC Absolute Seg Neuts (1.4-5.7) Lymphocytes # (Manual) (0.6-2.4) Monocytes # (Manual) (0.0-0.8) Basophils # (Manual) (0.0-0.1) Absolute Metamyelocyte Nucleated RBCs # K/uL Platelet Estimate Polychromasia Poikilocytosis Tear Drop Cells Elliptocytes Smear Path Review SENT TO PATHOLOGY Absolute Retic 130.00 H (20-80) K/uL Percent Retic 4.6 H (0.5-1.5) % Immature Retic Fraction 37 % Sodium (136-145) mmol/L Potassium (3.5-5.1) mmol/L Chloride (98-107) mmol/L Carbon Dioxide (21.0-32.0) mmol/L BUN (7.0-18.0) mg/dL Creatinine (0.6-1.0) mg/dL Est Cr Clr Drug Dosing mL/min Estimated GFR (MDRD) ml/min Glucose (74-106) mg/dL Calcium (8.5-10.1) mg/dL Iron (50-175) ug/dL TIBC (250-450) ug/dL % Saturation (20-55) % Transferrin Ferritin (8-252) ng/mL Total Bilirubin (0.2-1.0) mg/dL AST (15-37) IU/L ALT (14-63) IU/L Alkaline Phosphatase (46-116) U/L Total Protein (6.4-8.2) g/dL Albumin (3.4-5.0) g/dL Globulin (2.6-4.0) g/dL Albumin/Globulin Ratio (0.9-1.6) Urine Color Urine Appearance Urine pH (5.0-8.0) Ur Specific [place] (1.001-1.035) Urine Protein (NEGATIVE) mg/dL Urine Glucose (UA) (NEGATIVE) mg/dL Urine Ketones (NEGATIVE) mg/dL Urine Occult Blood (NEGATIVE) Urine Nitrite (NEGATIVE) Urine Bilirubin (NEGATIVE) Urine Urobilinogen (<2.0) EU/dL Ur Leukocyte Esterase (NEGATIVE) Urine RBC (0-2/HPF) Urine WBC (0-5/HPF) Ur Epithelial Cells (NONE-FEW) Urine Bacteria (NEGATIVE) Urine Mucus (NONE-MOD) Urine Opiates Screen NEGATIVE (NEGATIVE) Ur Oxycodone Screen NEGATIVE (NEGATIVE) Urine Methadone Screen NEGATIVE (NEGATIVE) Ur Barbiturates Screen NEGATIVE (NEGATIVE) Ur Phencyclidine Scrn NEGATIVE (NEGATIVE) Ur Amphetamine Screen NEGATIVE (NEGATIVE) U Methamphetamines Scrn NEGATIVE (NEGATIVE) U Benzodiazepines Scrn NEGATIVE (NEGATIVE) U Cocaine Metab Screen NEGATIVE (NEGATIVE) U Marijuana (THC) Screen NEGATIVE (NEGATIVE) Blood Type Antibody Screen Crossmatch 12/18/20 12/19/20 12/19/20 Range/Units 21:05 05:35 05:35 WBC 10.06 (4.0-11.0) K/uL RBC 3.30 L (4.30-5.90) M/uL Hgb 7.0 L 7.8 L (12.0-16.0) g/dL Hct 23.5 L 25.7 L (36.0-46.0) % MCV 77.9 L (80.0-98.0) fL MCH 23.6 L (27.0-32.0) pg MCHC 30.4 L (31.0-37.0) g/dL RDW Std Deviation 64.7 H (28.0-62.0) fl RDW Coeff of [place] 23 H (11.0-15.0) % Plt Count 27 L (150-400) K/uL Add Manual Diff YES Neutrophils % (Manual) 74 (48.0-80.0) % Lymphocytes % (Manual) 20 (16.0-40.0) % Monocytes % (Manual) 4 (0.0-15.0) % Basophils % (Manual) 1 (0.0-1.5) % Metamyelocytes % 1 % Nucleated RBC % 5.5 /100WBC Absolute Seg Neuts 7.4 H (1.4-5.7) Lymphocytes # (Manual) 2.0 (0.6-2.4) Monocytes # (Manual) 0.4 (0.0-0.8) Basophils # (Manual) 0.1 (0.0-0.1) Absolute Metamyelocyte 0.1 Nucleated RBCs # 1 K/uL Platelet Estimate DECREASED Polychromasia 1+ SLIGHT Poikilocytosis 2+ MODERATE Tear Drop Cells 1+ SLIGHT Elliptocytes 1+ SLIGHT Smear Path Review Absolute Retic (20-80) K/uL Percent Retic (0.5-1.5) % Immature Retic Fraction % Sodium 140 (136-145) mmol/L Potassium 3.9 (3.5-5.1) mmol/L Chloride 107 (98-107) mmol/L Carbon Dioxide 23.5 (21.0-32.0) mmol/L BUN 14 (7.0-18.0) mg/dL Creatinine 0.7 (0.6-1.0) mg/dL Est Cr Clr Drug Dosing 42.34 mL/min Estimated GFR (MDRD) > 60.0 ml/min Glucose 91 (74-106) mg/dL Calcium 7.1 L (8.5-10.1) mg/dL Iron (50-175) ug/dL TIBC (250-450) ug/dL % Saturation (20-55) % Transferrin Ferritin (8-252) ng/mL Total Bilirubin 0.9 (0.2-1.0) mg/dL AST 12 L (15-37) IU/L ALT 8 L (14-63) IU/L Alkaline Phosphatase 62 (46-116) U/L Total Protein 5.2 L (6.4-8.2) g/dL Albumin 2.1 L (3.4-5.0) g/dL Globulin 3.1 (2.6-4.0) g/dL Albumin/Globulin Ratio 0.7 L (0.9-1.6) Urine Color Urine Appearance Urine pH (5.0-8.0) Ur Specific [place] (1.001-1.035) Urine Protein (NEGATIVE) mg/dL Urine Glucose (UA) (NEGATIVE) mg/dL Urine Ketones (NEGATIVE) mg/dL Urine Occult Blood (NEGATIVE) Urine Nitrite (NEGATIVE) Urine Bilirubin (NEGATIVE) Urine Urobilinogen (<2.0) EU/dL Ur Leukocyte Esterase (NEGATIVE) Urine RBC (0-2/HPF) Urine WBC (0-5/HPF) Ur Epithelial Cells (NONE-FEW) Urine Bacteria (NEGATIVE) Urine Mucus (NONE-MOD) Urine Opiates Screen (NEGATIVE) Ur Oxycodone Screen (NEGATIVE) Urine Methadone Screen (NEGATIVE) Ur Barbiturates Screen (NEGATIVE) Ur Phencyclidine Scrn (NEGATIVE) Ur Amphetamine Screen (NEGATIVE) U Methamphetamines Scrn (NEGATIVE) U Benzodiazepines Scrn (NEGATIVE) U Cocaine Metab Screen (NEGATIVE) U Marijuana (THC) Screen (NEGATIVE) Blood Type Antibody Screen Crossmatch Med Orders - Current: Current Medications Dextrose/Water (50% Dextrose In Water 50 Ml Syringe) 50 ml IVPUSH ASDIRECTED PRN PRN Reason: Hypoglycemia Glucagon (Glucagon,Human Recombinant 1 Mg Vial) 1 mg IM ASDIRECTED PRN PRN Reason: Hypoglycemia Ceftriaxone Sodium/Dextrose 1 (gm/ Premix) 50 mls @ 100 mls/hr IV Q24H [facility] Last Admin: 12/18/20 18:20 Dose: 100 mls/hr Documented by: Pantoprazole Sodium 40 mg/ (Sodium Chloride) 10 mls @ 300 mls/hr IV Q24H [facility] Last Admin: 12/19/20 09:18 Dose: 300 mls/hr Documented by: Iron Sucrose 500 mg/ Sodium (Chloride) 525 mls @ 131 mls/hr IV DAILY [facility] Stop: 12/19/20 15:31 Discontinued Medications Famotidine (Famotidine 20 Mg/2 Ml Sdv) 20 mg IVPUSH ONETIME ONE Stop: 12/18/20 10:27 Last Admin: 12/18/20 10:36 Dose: 20 mg Documented by: Lactated Ringer's (Ringers, Lactated) 1,000 mls @ 999 mls/hr IV ASDIRECTED [facility] Last Admin: 12/18/20 09:03 Dose: 999 mls/hr Documented by: Pantoprazole Sodium 80 mg/ (Sodium Chloride) 20 mls @ 420 mls/hr IVPUSH ONETIME ONE Stop: 12/18/20 10:28 Last Admin: 12/18/20 10:36 Dose: 420 mls/hr Documented by: Insulin Aspart (Insulin Aspart 100 Units/Ml 3 Ml Pen) 0 unit SUBCUT TIDAC [facility]; Protocol Last Admin: 12/18/20 17:33 Dose: Not Given Documented by: Iopamidol (Iopamidol 755 Mg/Ml 500 Ml Multipack Bottle) 100 ml IVPUSH ONETIME STA Stop: 12/18/20 12:22 Last Admin: 12/18/20 12:22 Dose: 100 ml Documented by: - Exam General: Alert, Oriented, Cooperative HEENT: Mucous Membr. Moist/[place] Neck: Trachea Midline Lungs: Clear to Auscultation, Normal Respiratory Effort Cardiovascular: Regular Rate, Regular Rhythm, No Murmurs GI/Abdominal Exam: Normal Bowel Sounds, Soft, Non-Tender, No Organomegaly Extremities: No: Pedal Edema - Patient Data Lab Results Last 24 hrs: Laboratory Results - last 24 hr 12/18/20 12/18/20 12/18/20 Range/Units 08:40 10:22 14:50 WBC (4.0-11.0) K/uL RBC (4.30-5.90) M/uL Hgb (12.0-16.0) g/dL Hct (36.0-46.0) % MCV (80.0-98.0) fL MCH (27.0-32.0) pg MCHC (31.0-37.0) g/dL RDW Std Deviation (28.0-62.0) fl RDW Coeff of [place] (11.0-15.0) % Plt Count (150-400) K/uL Add Manual Diff Neutrophils % (Manual) (48.0-80.0) % Lymphocytes % (Manual) (16.0-40.0) % Monocytes % (Manual) (0.0-15.0) % Basophils % (Manual) (0.0-1.5) % Metamyelocytes % % Nucleated RBC % /100WBC Absolute Seg Neuts (1.4-5.7) Lymphocytes # (Manual) (0.6-2.4) Monocytes # (Manual) (0.0-0.8) Basophils # (Manual) (0.0-0.1) Absolute Metamyelocyte Nucleated RBCs # K/uL Platelet Estimate Polychromasia Poikilocytosis Tear Drop Cells Elliptocytes Smear Path Review Absolute Retic (20-80) K/uL Percent Retic (0.5-1.5) % Immature Retic Fraction % Sodium (136-145) mmol/L Potassium (3.5-5.1) mmol/L Chloride (98-107) mmol/L Carbon Dioxide (21.0-32.0) mmol/L BUN (7.0-18.0) mg/dL Creatinine (0.6-1.0) mg/dL Est Cr Clr Drug Dosing mL/min Estimated GFR (MDRD) ml/min Glucose (74-106) mg/dL Calcium (8.5-10.1) mg/dL Iron 15 L (50-175) ug/dL TIBC 380 (250-450) ug/dL % Saturation 3.95 L (20-55) % Transferrin 266.0 Ferritin 26 (8-252) ng/mL Total Bilirubin (0.2-1.0) mg/dL AST (15-37) IU/L ALT (14-63) IU/L Alkaline Phosphatase (46-116) U/L Total Protein (6.4-8.2) g/dL Albumin (3.4-5.0) g/dL Globulin (2.6-4.0) g/dL Albumin/Globulin Ratio (0.9-1.6) Urine Color YELLOW Urine Appearance CLOUDY Urine pH 6.0 (5.0-8.0) Ur Specific [place] 1.015 (1.001-1.035) Urine Protein TRACE H (NEGATIVE) mg/dL Urine Glucose (UA) NEGATIVE (NEGATIVE) mg/dL Urine Ketones NEGATIVE (NEGATIVE) mg/dL Urine Occult Blood LARGE H (NEGATIVE) Urine Nitrite POSITIVE H (NEGATIVE) Urine Bilirubin NEGATIVE (NEGATIVE) Urine Urobilinogen 1.0 (<2.0) EU/dL Ur Leukocyte Esterase MODERATE H (NEGATIVE) Urine RBC 1-3 (0-2/HPF) Urine WBC 6-9 (0-5/HPF) Ur Epithelial Cells OCCASIONAL (NONE-FEW) Urine Bacteria 2+ H (NEGATIVE) Urine Mucus LIGHT (NONE-MOD) Urine Opiates Screen (NEGATIVE) Ur Oxycodone Screen (NEGATIVE) Urine Methadone Screen (NEGATIVE) Ur Barbiturates Screen (NEGATIVE) Ur Phencyclidine Scrn (NEGATIVE) Ur Amphetamine Screen (NEGATIVE) U Methamphetamines Scrn (NEGATIVE) U Benzodiazepines Scrn (NEGATIVE) U Cocaine Metab Screen (NEGATIVE) U Marijuana (THC) Screen (NEGATIVE) Blood Type A POSITIVE Antibody Screen NEGATIVE Crossmatch See Detail 12/18/20 12/18/20 12/18/20 Range/Units 14:50 16:37 16:37 WBC (4.0-11.0) K/uL RBC 2.85 L (4.30-5.90) M/uL Hgb (12.0-16.0) g/dL Hct (36.0-46.0) % MCV (80.0-98.0) fL MCH (27.0-32.0) pg MCHC (31.0-37.0) g/dL RDW Std Deviation (28.0-62.0) fl RDW Coeff of [place] (11.0-15.0) % Plt Count (150-400) K/uL Add Manual Diff Neutrophils % (Manual) (48.0-80.0) % Lymphocytes % (Manual) (16.0-40.0) % Monocytes % (Manual) (0.0-15.0) % Basophils % (Manual) (0.0-1.5) % Metamyelocytes % % Nucleated RBC % /100WBC Absolute Seg Neuts (1.4-5.7) Lymphocytes # (Manual) (0.6-2.4) Monocytes # (Manual) (0.0-0.8) Basophils # (Manual) (0.0-0.1) Absolute Metamyelocyte Nucleated RBCs # K/uL Platelet Estimate Polychromasia Poikilocytosis Tear Drop Cells Elliptocytes Smear Path Review SENT TO PATHOLOGY Absolute Retic 130.00 H (20-80) K/uL Percent Retic 4.6 H (0.5-1.5) % Immature Retic Fraction 37 % Sodium (136-145) mmol/L Potassium (3.5-5.1) mmol/L Chloride (98-107) mmol/L Carbon Dioxide (21.0-32.0) mmol/L BUN (7.0-18.0) mg/dL Creatinine (0.6-1.0) mg/dL Est Cr Clr Drug Dosing mL/min Estimated GFR (MDRD) ml/min Glucose (74-106) mg/dL Calcium (8.5-10.1) mg/dL Iron (50-175) ug/dL TIBC (250-450) ug/dL % Saturation (20-55) % Transferrin Ferritin (8-252) ng/mL Total Bilirubin (0.2-1.0) mg/dL AST (15-37) IU/L ALT (14-63) IU/L Alkaline Phosphatase (46-116) U/L Total Protein (6.4-8.2) g/dL Albumin (3.4-5.0) g/dL Globulin (2.6-4.0) g/dL Albumin/Globulin Ratio (0.9-1.6) Urine Color Urine Appearance Urine pH (5.0-8.0) Ur Specific [place] (1.001-1.035) Urine Protein (NEGATIVE) mg/dL Urine Glucose (UA) (NEGATIVE) mg/dL Urine Ketones (NEGATIVE) mg/dL Urine Occult Blood (NEGATIVE) Urine Nitrite (NEGATIVE) Urine Bilirubin (NEGATIVE) Urine Urobilinogen (<2.0) EU/dL Ur Leukocyte Esterase (NEGATIVE) Urine RBC (0-2/HPF) Urine WBC (0-5/HPF) Ur Epithelial Cells (NONE-FEW) Urine Bacteria (NEGATIVE) Urine Mucus (NONE-MOD) Urine Opiates Screen NEGATIVE (NEGATIVE) Ur Oxycodone Screen NEGATIVE (NEGATIVE) Urine Methadone Screen NEGATIVE (NEGATIVE) Ur Barbiturates Screen NEGATIVE (NEGATIVE) Ur Phencyclidine Scrn NEGATIVE (NEGATIVE) Ur Amphetamine Screen NEGATIVE (NEGATIVE) U Methamphetamines Scrn NEGATIVE (NEGATIVE) U Benzodiazepines Scrn NEGATIVE (NEGATIVE) U Cocaine Metab Screen NEGATIVE (NEGATIVE) U Marijuana (THC) Screen NEGATIVE (NEGATIVE) Blood Type Antibody Screen Crossmatch 12/18/20 12/19/20 12/19/20 Range/Units 21:05 05:35 05:35 WBC 10.06 (4.0-11.0) K/uL RBC 3.30 L (4.30-5.90) M/uL Hgb 7.0 L 7.8 L (12.0-16.0) g/dL Hct 23.5 L 25.7 L (36.0-46.0) % MCV 77.9 L (80.0-98.0) fL MCH 23.6 L (27.0-32.0) pg MCHC 30.4 L (31.0-37.0) g/dL RDW Std Deviation 64.7 H (28.0-62.0) fl RDW Coeff of [place] 23 H (11.0-15.0) % Plt Count 27 L (150-400) K/uL Add Manual Diff YES Neutrophils % (Manual) 74 (48.0-80.0) % Lymphocytes % (Manual) 20 (16.0-40.0) % Monocytes % (Manual) 4 (0.0-15.0) % Basophils % (Manual) 1 (0.0-1.5) % Metamyelocytes % 1 % Nucleated RBC % 5.5 /100WBC Absolute Seg Neuts 7.4 H (1.4-5.7) Lymphocytes # (Manual) 2.0 (0.6-2.4) Monocytes # (Manual) 0.4 (0.0-0.8) Basophils # (Manual) 0.1 (0.0-0.1) Absolute Metamyelocyte 0.1 Nucleated RBCs # 1 K/uL Platelet Estimate DECREASED Polychromasia 1+ SLIGHT Poikilocytosis 2+ MODERATE Tear Drop Cells 1+ SLIGHT Elliptocytes 1+ SLIGHT Smear Path Review Absolute Retic (20-80) K/uL Percent Retic (0.5-1.5) % Immature Retic Fraction % Sodium 140 (136-145) mmol/L Potassium 3.9 (3.5-5.1) mmol/L Chloride 107 (98-107) mmol/L Carbon Dioxide 23.5 (21.0-32.0) mmol/L BUN 14 (7.0-18.0) mg/dL Creatinine 0.7 (0.6-1.0) mg/dL Est Cr Clr Drug Dosing 42.34 mL/min Estimated GFR (MDRD) > 60.0 ml/min Glucose 91 (74-106) mg/dL Calcium 7.1 L (8.5-10.1) mg/dL Iron (50-175) ug/dL TIBC (250-450) ug/dL % Saturation (20-55) % Transferrin Ferritin (8-252) ng/mL Total Bilirubin 0.9 (0.2-1.0) mg/dL AST 12 L (15-37) IU/L ALT 8 L (14-63) IU/L Alkaline Phosphatase 62 (46-116) U/L Total Protein 5.2 L (6.4-8.2) g/dL Albumin 2.1 L (3.4-5.0) g/dL Globulin 3.1 (2.6-4.0) g/dL Albumin/Globulin Ratio 0.7 L (0.9-1.6) Urine Color Urine Appearance Urine pH (5.0-8.0) Ur Specific [place] (1.001-1.035) Urine Protein (NEGATIVE) mg/dL Urine Glucose (UA) (NEGATIVE) mg/dL Urine Ketones (NEGATIVE) mg/dL Urine Occult Blood (NEGATIVE) Urine Nitrite (NEGATIVE) Urine Bilirubin (NEGATIVE) Urine Urobilinogen (<2.0) EU/dL Ur Leukocyte Esterase (NEGATIVE) Urine RBC (0-2/HPF) Urine WBC (0-5/HPF) Ur Epithelial Cells (NONE-FEW) Urine Bacteria (NEGATIVE) Urine Mucus (NONE-MOD) Urine Opiates Screen (NEGATIVE) Ur Oxycodone Screen (NEGATIVE) Urine Methadone Screen (NEGATIVE) Ur Barbiturates Screen (NEGATIVE) Ur Phencyclidine Scrn (NEGATIVE) Ur Amphetamine Screen (NEGATIVE) U Methamphetamines Scrn (NEGATIVE) U Benzodiazepines Scrn (NEGATIVE) U Cocaine Metab Screen (NEGATIVE) U Marijuana (THC) Screen (NEGATIVE) Blood Type Antibody Screen Crossmatch Result Diagrams: 12/19/20 05:35 12/19/20 05:35 Sepsis Event Note - Evaluation Sepsis Screening Result: No Definite Risk - Focused Exam Vital Signs: Vital Signs Temp Temp Pulse Resp BP Pulse Ox 12/19/20 12:00 97.9 F 98 17 127/65 95 12/19/20 11:44 97.7 F 88 18 127/69 99 12/19/20 11:29 98 F 80 18 121/60 100 12/19/20 07:46 97.8 F 88 17 120/46 L 96 12/19/20 02:28 98.7 F 81 16 111/58 L 97 - Problem List & Annotations (1) Anemia SNOMED Code(s): 270284405 Code(s): D64.9 - ANEMIA, UNSPECIFIED Status: Acute Current Visit: Yes (2) Leukocytosis SNOMED Code(s): 237612849, 405715498 Code(s): D72.829 - ELEVATED WHITE BLOOD CELL COUNT, UNSPECIFIED Status: Acute Current Visit: Yes (3) Thrombocytopenia SNOMED Code(s): 706967231 Code(s): D69.6 - THROMBOCYTOPENIA, UNSPECIFIED Status: Acute Current Visit: Yes (4) UTI (urinary tract infection) SNOMED Code(s): 14601460 Code(s): N39.0 - URINARY TRACT INFECTION, SITE NOT SPECIFIED Status: Acute Current Visit: Yes - Problem List Review Problem List Initiated/Reviewed/Updated: Yes - My Orders Last 24 Hours: My Active Orders 12/18/20 Dinner Regular Diet [DIET] 12/18/20 16:35 Dextrose 50% in Water 50 ml IVPUSH ASDIRECTED PRN Glucagon,Human Recombinant [GlucaGen] 1 mg IM ASDIRECTED PRN 12/18/20 18:00 cefTRIAXone [Rocephin in Dextrose,Iso-Osm 1 GM/50 ML] 1 gm Premix Bag 1 bag IV Q24H 12/19/20 09:00 Pantoprazole [ProTONIX IV] 40 mg Sodium Chloride 0.9% [Normal Saline] 10 ml IV Q24H 12/19/20 11:30 Iron Sucrose Complex [Venofer] 500 mg Sodium Chloride 0.9% [Normal Saline] 500 ml IV DAILY 12/19/20 16:05 CBC WITH AUTO DIFF [HEME] Routine 12/20/20 05:11 CBC WITH AUTO DIFF [HEME] AM CMP [COMPREHENSIVE METABOLIC PN,CMP] [CHEM] AM 12/21/20 05:11 CBC WITH AUTO DIFF [HEME] AM CMP [COMPREHENSIVE METABOLIC PN,CMP] [CHEM] AM 12/22/20 05:11 CBC WITH AUTO DIFF [HEME] AM CMP [COMPREHENSIVE METABOLIC PN,CMP] [CHEM] AM - Plan Plan:: 1. Anemia -The patient has been transfused 3 units of blood collectively while being in hospital, hemoglobin and hematocrit check last night was 7 and 23.5 respectively. CBC this morning showed a hemoglobin of 7.8 and hematocrit of 25.7. A blood smear was done which showed an iron deficiency anemia and as a result the patient has been given an iron infusion today, and will be given one tomorrow as well. -CBC/CMP has been ordered for a.m. labs 2. Thrombocytopenia -The patient's platelet levels were decreased to 42 yesterday, and today were 27. She is currently receiving a platelet transfusion and we will reassess if further infusions are needed. -We will continue to monitor the patient's platelets through daily CBCs 3. Leukocytosis most likely secondary to UTI -Continue the patient on 1 g Rocephin every 24 hours -We will continue to monitor patient's white blood cell status with daily CBCs
[2020-12-19] MEDS: cefTRIAXone 1 GM in Premix Bag 1 BAG IV SCH (18:40)
--- NOTE | 2020-12-19 19:54 | PCM.SN.2 ---
- Free Text/Narrative Note: patient reports feeling sick, She does not elaborate and has become more lethargic, Will check CT head, CXR, EKG, Will expand antibiotics to Zosyn to cover UTI and proctitis, will repeat CBC Time Documentation
[2020-12-19] MEDS ORDERED: Sodium Chloride 0.9% 1,000 ML IV SCH (20:00)
--- NOTE | 2020-12-19 20:51 | CT ---
INDICATION: Altered mental status. COMPARISON: None. TECHNIQUE: Noncontrast images. FINDINGS: Diffuse atrophy with prominence of sulci and ventricles. Normal frey-white differentiation. Hazy mineralization high attenuation at the basal ganglia bilaterally. Single punctate focus of high attenuation at the frey-white junction in the anterior right frontal lobe is nonspecific (image 15 series 201). No definitive extra-axial fluid or hemorrhage. IMPRESSION: 1. Diffuse global atrophy. 2. Small focus of high attenuation frey-white differentiation anterior right frontal lobe. This may be chronic dystrophic mineralization as would be seen with cavernous hemangioma. Punctate dystrophic mineralization related to prior parenchymal injury is a possibility. Acute parenchymal hemorrhage not excluded although felt less likely given the history. No other significant acute abnormality appreciated. If there is ongoing clinical concern, consider interval follow-up in 6-12 hours or appropriate clinical interval. Please note that all CT scans at this facility use dose modulation, iterative reconstruction, and/or weight-based dosing when appropriate to reduce radiation dose to as low as reasonably achievable. Dictated by Misbah Michel MD @ 12/19/2020 8:50:42 PM (Electronically Signed)
--- NOTE | 2020-12-19 20:57 | CR ---
INDICATION: Lethargy with altered mental status. TECHNIQUE: Chest 1 view. COMPARISON: 18 December 2020 FINDINGS: Cardiovascular and mediastinum: Heart size and vasculature are normal in caliber and appearance. Mediastinum is within normal limits. Lower lung volumes from before. Lungs and pleural space: Lungs are clear. No sign of infiltrate or mass. No sign of pleural effusion. No pneumothorax. Bones and soft tissues: No significant findings. IMPRESSION: Unremarkable chest. Dictated by Misbah Michel MD @ 12/19/2020 8:55:47 PM (Electronically Signed)
[2020-12-19] MEDS: Piperacillin/Tazobactam 3.375 GM in Sodium Chloride 0.9% 50 ML IV SCH (21:05)
[2020-12-20] MEDS: Piperacillin/Tazobactam 3.375 GM in Sodium Chloride 0.9% 50 ML IV SCH ×4 (02:36→20:10)
[2020-12-20 07:54] LABS: CARBON DIOXIDE,CO2 21.9 mmol/L (21.0-32.0); POTASSIUM,K 4.1 mmol/L (3.5-5.1)
[2020-12-20] MEDS: Pantoprazole 40 MG in Sodium Chloride 0.9% 10 ML IV SCH (08:22)
--- NOTE | 2020-12-20 15:33 | PCM.PN ---
- General Info Date of Service: 12/20/20 Subjective Update: The patient is an 85-year-old female, on day 3 of service with no significant past medical history, who was admitted to the hospital for anemia, thrombocytopenia, and a urinary tract infection. The patient has had multiple bowel movements in the past 24 hours that have ranged from regular brown color to dark red discoloration. The patient may have a chronic gastrointestinal bleeding issue but has denied evaluation with a scope to check for any ab normalities. Yesterday evening the patient had a vasovagal syncopal episode upon using the restroom, and had dizziness and weakness, and great difficulty ambulating in her room. Upon interview today she admits that her dizziness and weakness is gone when at rest in bed, however she is not clear if it would occur upon ambulation. The patient is extremely weak on her feet when ambulating and as a result physical therapy will be initiated. The nurses for this patient has also been asked to try to walk with the patient to see if she feels dizzy or weak upon ambulation. Her hemoglobin has increased to 10.5, however her platelet levels still remain decreased. A few imaging studies have also been done on this patient including a CT of the head and chest x-ray. 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 Chest x-ray was unremarkable. The patient has no complaints at this time. - Review of Systems General: Reports: Weakness, Fatigue. Denies: Fever HEENT: Denies: Headaches Pulmonary: Denies: Shortness of Breath, Pleuritic Chest Pain, Cough Cardiovascular: Denies: Chest Pain, Palpitations, Dyspnea on Exertion Gastrointestinal: Denies: Abdominal Pain Genitourinary: Denies: Dysuria, Frequency, Burning, Pain Neurological: Reports: Dizziness - Patient Data Vitals - Most Recent: Last Vital Signs Temp 98.4 F 12/20/20 15:17 Pulse 74 12/20/20 15:17 Resp 16 12/20/20 15:17 BP 125/60 12/20/20 15:17 Pulse Ox 97 12/20/20 15:17 Weight - Most Recent: 102 lb 8 oz I&O - Last 24 Hours: Intake & Output 12/20/20 12/20/20 12/20/20 06:59 14:59 22:59 Intake Total 400 Balance 400 Lab Results Last 24 Hours: Laboratory Results - last 24 hr 12/19/20 12/20/20 12/20/20 Range/Units 16:17 06:05 06:05 WBC 12.03 H 16.03 H (4.0-11.0) K/uL RBC 3.95 L 4.37 (4.30-5.90) M/uL Hgb 9.5 L 10.5 L (12.0-16.0) g/dL Hct 30.9 L 34.2 L (36.0-46.0) % MCV 78.2 L 78.3 L (80.0-98.0) fL MCH 24.1 L 24.0 L (27.0-32.0) pg MCHC 30.7 L 30.7 L (31.0-37.0) g/dL RDW Std Deviation 66.2 H 68.0 H (28.0-62.0) fl RDW Coeff of Chuy 23 H 24 H (11.0-15.0) % Plt Count 67 L 48 L (150-400) K/uL Add Manual Diff YES YES Neutrophils % (Manual) 66 74 (48.0-80.0) % Band Neutrophils % 6 5 % Lymphocytes % (Manual) 24 17 (16.0-40.0) % Monocytes % (Manual) 3 4 (0.0-15.0) % Metamyelocytes % 1 % Nucleated RBC % 5.6 7.1 /100WBC Absolute Seg Neuts 7.9 H 11.9 H (1.4-5.7) Band Neutrophils # 0.7 0.8 Lymphocytes # (Manual) 2.9 H 2.7 H (0.6-2.4) Monocytes # (Manual) 0.4 0.6 (0.0-0.8) Absolute Metamyelocyte 0.1 Nucleated RBCs # 1 1 K/uL Platelet Estimate DECREASED Polychromasia 1+ SLIGHT Poikilocytosis 2+ MODERATE Tear Drop Cells 1+ SLIGHT Elliptocytes 1+ SLIGHT Sodium 144 (136-145) mmol/L Potassium 4.1 (3.5-5.1) mmol/L Chloride 109 H (98-107) mmol/L Carbon Dioxide 21.9 (21.0-32.0) mmol/L BUN 24 H (7.0-18.0) mg/dL Creatinine 1.0 (0.6-1.0) mg/dL Est Cr Clr Drug Dosing 29.64 mL/min Estimated GFR (MDRD) 52.6 ml/min Glucose 113 H (74-106) mg/dL Calcium 7.2 L (8.5-10.1) mg/dL Total Bilirubin 0.7 (0.2-1.0) mg/dL AST 24 (15-37) IU/L ALT 8 L (14-63) IU/L Alkaline Phosphatase 59 (46-116) U/L Total Protein 4.8 L (6.4-8.2) g/dL Albumin 2.1 L (3.4-5.0) g/dL Globulin 2.7 (2.6-4.0) g/dL Albumin/Globulin Ratio 0.8 L (0.9-1.6) Med Orders - Current: Current Medications Dextrose/Water (50% Dextrose In Water 50 Ml Syringe) 50 ml IVPUSH ASDIRECTED PRN PRN Reason: Hypoglycemia Glucagon (Glucagon,Human Recombinant 1 Mg Vial) 1 mg IM ASDIRECTED PRN PRN Reason: Hypoglycemia Pantoprazole Sodium 40 mg/ (Sodium Chloride) 10 mls @ 300 mls/hr IV Q24H [facility] Last Admin: 12/20/20 08:22 Dose: 300 mls/hr Documented by: Piperacillin Sod/Tazobactam (Sod 3.375 gm/ Sodium Chloride) 50 mls @ 100 mls/hr IV Q6H [facility] Last Admin: 12/20/20 14:04 Dose: 100 mls/hr Documented by: Discontinued Medications Famotidine (Famotidine 20 Mg/2 Ml Sdv) 20 mg IVPUSH ONETIME ONE Stop: 12/18/20 10:27 Last Admin: 12/18/20 10:36 Dose: 20 mg Documented by: Lactated Ringer's (Ringers, Lactated) 1,000 mls @ 999 mls/hr IV ASDIRECTED [facility] Last Admin: 12/18/20 09:03 Dose: 999 mls/hr Documented by: Pantoprazole Sodium 80 mg/ (Sodium Chloride) 20 mls @ 420 mls/hr IVPUSH ONETIME ONE Stop: 12/18/20 10:28 Last Admin: 12/18/20 10:36 Dose: 420 mls/hr Documented by: Ceftriaxone Sodium/Dextrose 1 (gm/ Premix) 50 mls @ 100 mls/hr IV Q24H [facility] Last Admin: 12/19/20 18:40 Dose: 100 mls/hr Documented by: Iron Sucrose 500 mg/ Sodium (Chloride) 525 mls @ 131 mls/hr IV DAILY [facility] Stop: 12/19/20 15:31 Last Admin: 12/19/20 13:28 Dose: 131 mls/hr Documented by: Sodium Chloride (Normal Saline) 1,000 mls @ 125 mls/hr IV ASDIRECTED [facility] Stop: 12/20/20 03:59 Last Admin: 12/19/20 21:05 Dose: 125 mls/hr Documented by: Insulin Aspart (Insulin Aspart 100 Units/Ml 3 Ml Pen) 0 unit SUBCUT TIDAC [facility]; Protocol Last Admin: 12/18/20 17:33 Dose: Not Given Documented by: Iopamidol (Iopamidol 755 Mg/Ml 500 Ml Multipack Bottle) 100 ml IVPUSH ONETIME STA Stop: 12/18/20 12:22 Last Admin: 12/18/20 12:22 Dose: 100 ml Documented by: - Exam General: Alert, Oriented, Cooperative HEENT: Mucous Membr. Moist/[place] Lungs: Clear to Auscultation, Normal Respiratory Effort Cardiovascular: Regular Rate, Regular Rhythm, No Murmurs GI/Abdominal Exam: Normal Bowel Sounds, Soft, Non-Tender, No Organomegaly - Patient Data Lab Results Last 24 hrs: Laboratory Results - last 24 hr 12/19/20 12/20/20 12/20/20 Range/Units 16:17 06:05 06:05 WBC 12.03 H 16.03 H (4.0-11.0) K/uL RBC 3.95 L 4.37 (4.30-5.90) M/uL Hgb 9.5 L 10.5 L (12.0-16.0) g/dL Hct 30.9 L 34.2 L (36.0-46.0) % MCV 78.2 L 78.3 L (80.0-98.0) fL MCH 24.1 L 24.0 L (27.0-32.0) pg MCHC 30.7 L 30.7 L (31.0-37.0) g/dL RDW Std Deviation 66.2 H 68.0 H (28.0-62.0) fl RDW Coeff of Chuy 23 H 24 H (11.0-15.0) % Plt Count 67 L 48 L (150-400) K/uL Add Manual Diff YES YES Neutrophils % (Manual) 66 74 (48.0-80.0) % Band Neutrophils % 6 5 % Lymphocytes % (Manual) 24 17 (16.0-40.0) % Monocytes % (Manual) 3 4 (0.0-15.0) % Metamyelocytes % 1 % Nucleated RBC % 5.6 7.1 /100WBC Absolute Seg Neuts 7.9 H 11.9 H (1.4-5.7) Band Neutrophils # 0.7 0.8 Lymphocytes # (Manual) 2.9 H 2.7 H (0.6-2.4) Monocytes # (Manual) 0.4 0.6 (0.0-0.8) Absolute Metamyelocyte 0.1 Nucleated RBCs # 1 1 K/uL Platelet Estimate DECREASED Polychromasia 1+ SLIGHT Poikilocytosis 2+ MODERATE Tear Drop Cells 1+ SLIGHT Elliptocytes 1+ SLIGHT Sodium 144 (136-145) mmol/L Potassium 4.1 (3.5-5.1) mmol/L Chloride 109 H (98-107) mmol/L Carbon Dioxide 21.9 (21.0-32.0) mmol/L BUN 24 H (7.0-18.0) mg/dL Creatinine 1.0 (0.6-1.0) mg/dL Est Cr Clr Drug Dosing 29.64 mL/min Estimated GFR (MDRD) 52.6 ml/min Glucose 113 H (74-106) mg/dL Calcium 7.2 L (8.5-10.1) mg/dL Total Bilirubin 0.7 (0.2-1.0) mg/dL AST 24 (15-37) IU/L ALT 8 L (14-63) IU/L Alkaline Phosphatase 59 (46-116) U/L Total Protein 4.8 L (6.4-8.2) g/dL Albumin 2.1 L (3.4-5.0) g/dL Globulin 2.7 (2.6-4.0) g/dL Albumin/Globulin Ratio 0.8 L (0.9-1.6) Result Diagrams: 12/20/20 06:05 12/20/20 06:05 Sepsis Event Note - Evaluation Sepsis Screening Result: Possible Sepsis Risk - Focused Exam Vital Signs: Vital Signs Temp Pulse Resp BP Pulse Ox 12/20/20 15:17 98.4 F 74 16 125/60 97 12/20/20 07:41 97.2 F 71 16 121/54 L 96 12/20/20 04:30 97.0 F 72 16 120/56 L 96 - Problem List & Annotations (1) Anemia SNOMED Code(s): 605577927 Code(s): D64.9 - ANEMIA, UNSPECIFIED Status: Acute Current Visit: Yes (2) Leukocytosis SNOMED Code(s): 150091608, 724176222 Code(s): D72.829 - ELEVATED WHITE BLOOD CELL COUNT, UNSPECIFIED Status: Acute Current Visit: Yes (3) Thrombocytopenia SNOMED Code(s): 970815841 Code(s): D69.6 - THROMBOCYTOPENIA, UNSPECIFIED Status: Acute Current Visit: Yes (4) UTI (urinary tract infection) SNOMED Code(s): 08385254 Code(s): N39.0 - URINARY TRACT INFECTION, SITE NOT SPECIFIED Status: Acute Current Visit: Yes (5) Ambulatory dysfunction SNOMED Code(s): 016634631 Code(s): R26.2 - DIFFICULTY IN WALKING, NOT ELSEWHERE CLASSIFIED Status: Acute Current Visit: Yes - Problem List Review Problem List Initiated/Reviewed/Updated: Yes - My Orders Last 24 Hours: My Active Orders 12/21/20 05:11 CBC WITH AUTO DIFF [HEME] AM CMP [COMPREHENSIVE METABOLIC PN,CMP] [CHEM] AM 12/22/20 05:11 CBC WITH AUTO DIFF [HEME] AM CMP [COMPREHENSIVE METABOLIC PN,CMP] [CHEM] AM - Plan Plan:: 1. Anemia -The patient has been transfused 3 units of blood collectively while being in hospital, hemoglobin and hematocrit check as of this morning is 10.5 and 34.2. -We will continue to monitor these levels through a.m. CBC/CMP's 2. Thrombocytopenia -The patient's platelet levels continue to remain decreased despite a platelet transfusion, they are currently at 48. -We will continue to monitor the patient's platelets through daily CBCs 3. Leukocytosis most likely secondary to UTI -We have started the patient on Zosyn 3.375 g per IV route every 6 hours. -We will continue to monitor patient's white blood cell status with daily CBCs 4. Ambulatory dysfunction -We have initiated the patient on physical therapy in order to build her strength
[2020-12-21] MEDS: Piperacillin/Tazobactam 3.375 GM in Sodium Chloride 0.9% 50 ML IV SCH (03:05)
[2020-12-21 07:45] LABS: BLOOD UREA NITROGEN,BUN 15 mg/dL (7.0-18.0); CARBON DIOXIDE,CO2 21.8 mmol/L (21.0-32.0); CHLORIDE,CL 108 mmol/L (98-107); GLUCOSE RANDOM 88 mg/dL (74-106); SODIUM,NA 140 mmol/L (136-145)
[2020-12-21] MEDS: Piperacillin/Tazobactam 2.25 GM in Sodium Chloride 0.9% 50 ML IV SCH ×3 (09:42→23:00)
[2020-12-21] MEDS: Pantoprazole 40 MG in Sodium Chloride 0.9% 10 ML IV SCH (09:42)
--- NOTE | 2020-12-21 17:19 | PCM.PN ---
<Rex Peck - Last Filed: 12/21/20 17:13> - General Info Date of Service: 12/21/20 Subjective Update: The patient is a 85-year-old female, on day 4 of service, who has no significant past medical history but it is suspected that she has a chronic GI bleed. She was admitted for anemia, thrombocytopenia, urinary tract infection, and has been found to have ambulatory dysfunction. Upon interview today the patient still requires assistance ambulating around her room but feels less dizzy and weak than she did yesterday. She has more solid stool than yesterday but it is still loose. Physical therapy will come see the patient in order to try to perform exercises that can build her strength so she is independent in her activities of daily living. There are no other concerns at this time. - Review of Systems General: Reports: Weakness. Denies: Fever, Fatigue Pulmonary: Denies: Shortness of Breath, Pleuritic Chest Pain, Cough Cardiovascular: Denies: Chest Pain, Palpitations, Dyspnea on Exertion Gastrointestinal: Reports: Diarrhea. Denies: Abdominal Pain, Constipation Genitourinary: Denies: Dysuria, Frequency, Burning Neurological: Reports: Dizziness - Patient Data Vitals - Most Recent: Last Vital Signs Temp 97.4 F 12/21/20 15:29 Pulse 83 12/21/20 15:29 Resp 20 12/21/20 15:29 BP 142/69 H 12/21/20 15:29 Pulse Ox 99 12/21/20 15:29 Weight - Most Recent: 46.493 kg I&O - Last 24 Hours: Intake & Output 12/21/20 12/21/20 12/21/20 06:59 14:59 22:59 Intake Total 380 300 Output Total 980 Balance -600 300 Lab Results Last 24 Hours: Laboratory Results - last 24 hr 12/21/20 12/21/20 Range/Units 06:48 06:48 WBC 12.77 H (4.0-11.0) K/uL RBC 3.82 L (4.30-5.90) M/uL Hgb 8.9 L (12.0-16.0) g/dL Hct 29.8 L (36.0-46.0) % MCV 78.0 L (80.0-98.0) fL MCH 23.3 L (27.0-32.0) pg MCHC 29.9 L (31.0-37.0) g/dL RDW Std Deviation 68.4 H (28.0-62.0) fl RDW Coeff of [place] 24 H (11.0-15.0) % Plt Count 41 L (150-400) K/uL Add Manual Diff YES Neutrophils % (Manual) 81 H (48.0-80.0) % Band Neutrophils % 3 % Lymphocytes % (Manual) 12 L (16.0-40.0) % Monocytes % (Manual) 4 (0.0-15.0) % Nucleated RBC % 1.6 /100WBC Absolute Seg Neuts 10.3 H (1.4-5.7) Band Neutrophils # 0.4 Lymphocytes # (Manual) 1.5 (0.6-2.4) Monocytes # (Manual) 0.5 (0.0-0.8) Nucleated RBCs # 0 K/uL Platelet Estimate DECREASED Polychromasia 1+ SLIGHT Poikilocytosis 2+ MODERATE Elliptocytes 2+ MODERATE Sodium 140 (136-145) mmol/L Potassium 4.0 (3.5-5.1) mmol/L Chloride 108 H (98-107) mmol/L Carbon Dioxide 21.8 (21.0-32.0) mmol/L BUN 15 (7.0-18.0) mg/dL Creatinine 0.7 (0.6-1.0) mg/dL Est Cr Clr Drug Dosing 42.34 mL/min Estimated GFR (MDRD) > 60.0 ml/min Glucose 88 (74-106) mg/dL Calcium 6.9 L (8.5-10.1) mg/dL Total Bilirubin 0.9 (0.2-1.0) mg/dL AST 37 (15-37) IU/L ALT 16 (14-63) IU/L Alkaline Phosphatase 57 (46-116) U/L Total Protein 4.8 L (6.4-8.2) g/dL Albumin 2.1 L (3.4-5.0) g/dL Globulin 2.7 (2.6-4.0) g/dL Albumin/Globulin Ratio 0.8 L (0.9-1.6) Med Orders - Current: Current Medications Dextrose/Water (50% Dextrose In Water 50 Ml Syringe) 50 ml IVPUSH ASDIRECTED PRN PRN Reason: Hypoglycemia Glucagon (Glucagon,Human Recombinant 1 Mg Vial) 1 mg IM ASDIRECTED PRN PRN Reason: Hypoglycemia Pantoprazole Sodium 40 mg/ (Sodium Chloride) 10 mls @ 300 mls/hr IV Q24H [facility] Last Admin: 12/21/20 09:42 Dose: 300 mls/hr Documented by: Piperacillin Sod/Tazobactam (Sod 2.25 gm/ Sodium Chloride) 50 mls @ 100 mls/hr IV Q6H [facility] Last Admin: 12/21/20 16:31 Dose: 100 mls/hr Documented by: Discontinued Medications Famotidine (Famotidine 20 Mg/2 Ml Sdv) 20 mg IVPUSH ONETIME ONE Stop: 12/18/20 10:27 Last Admin: 12/18/20 10:36 Dose: 20 mg Documented by: Lactated Ringer's (Ringers, Lactated) 1,000 mls @ 999 mls/hr IV ASDIRECTED [facility] Last Admin: 12/18/20 09:03 Dose: 999 mls/hr Documented by: Pantoprazole Sodium 80 mg/ (Sodium Chloride) 20 mls @ 420 mls/hr IVPUSH ONETIME ONE Stop: 12/18/20 10:28 Last Admin: 12/18/20 10:36 Dose: 420 mls/hr Documented by: Ceftriaxone Sodium/Dextrose 1 (gm/ Premix) 50 mls @ 100 mls/hr IV Q24H [facility] Last Admin: 12/19/20 18:40 Dose: 100 mls/hr Documented by: Iron Sucrose 500 mg/ Sodium (Chloride) 525 mls @ 131 mls/hr IV DAILY [facility] Stop: 12/19/20 15:31 Last Admin: 12/19/20 13:28 Dose: 131 mls/hr Documented by: Piperacillin Sod/Tazobactam (Sod 3.375 gm/ Sodium Chloride) 50 mls @ 100 mls/hr IV Q6H [facility] Last Admin: 12/21/20 03:05 Dose: 100 mls/hr Documented by: Sodium Chloride (Normal Saline) 1,000 mls @ 125 mls/hr IV ASDIRECTED [facility] Stop: 12/20/20 03:59 Last Admin: 12/19/20 21:05 Dose: 125 mls/hr Documented by: Insulin Aspart (Insulin Aspart 100 Units/Ml 3 Ml Pen) 0 unit SUBCUT [facility]; Protocol Last Admin: 12/18/20 17:33 Dose: Not Given Documented by: Iopamidol (Iopamidol 755 Mg/Ml 500 Ml Multipack Bottle) 100 ml IVPUSH ONETIME [facility]A Stop: 12/18/20 12:22 Last Admin: 12/18/20 12:22 Dose: 100 ml Documented by: - Exam General: Alert, Oriented, Cooperative HEENT: Mucous Membr. Moist/[place] Lungs: Clear to Auscultation, Normal Respiratory Effort Cardiovascular: Regular Rate, Regular Rhythm, No Murmurs GI/Abdominal Exam: Normal Bowel Sounds, Soft, Non-Tender, No Organomegaly - Patient Data Lab Results Last 24 hrs: Laboratory Results - last 24 hr 12/21/20 12/21/20 Range/Units 06:48 06:48 WBC 12.77 H (4.0-11.0) K/uL RBC 3.82 L (4.30-5.90) M/uL Hgb 8.9 L (12.0-16.0) g/dL Hct 29.8 L (36.0-46.0) % MCV 78.0 L (80.0-98.0) fL MCH 23.3 L (27.0-32.0) pg MCHC 29.9 L (31.0-37.0) g/dL RDW Std Deviation 68.4 H (28.0-62.0) fl RDW Coeff of [place] 24 H (11.0-15.0) % Plt Count 41 L (150-400) K/uL Add Manual Diff YES Neutrophils % (Manual) 81 H (48.0-80.0) % Band Neutrophils % 3 % Lymphocytes % (Manual) 12 L (16.0-40.0) % Monocytes % (Manual) 4 (0.0-15.0) % Nucleated RBC % 1.6 /100WBC Absolute Seg Neuts 10.3 H (1.4-5.7) Band Neutrophils # 0.4 Lymphocytes # (Manual) 1.5 (0.6-2.4) Monocytes # (Manual) 0.5 (0.0-0.8) Nucleated RBCs # 0 K/uL Platelet Estimate DECREASED Polychromasia 1+ SLIGHT Poikilocytosis 2+ MODERATE Elliptocytes 2+ MODERATE Sodium 140 (136-145) mmol/L Potassium 4.0 (3.5-5.1) mmol/L Chloride 108 H (98-107) mmol/L Carbon Dioxide 21.8 (21.0-32.0) mmol/L BUN 15 (7.0-18.0) mg/dL Creatinine 0.7 (0.6-1.0) mg/dL Est Cr Clr Drug Dosing 42.34 mL/min Estimated GFR (MDRD) > 60.0 ml/min Glucose 88 (74-106) mg/dL Calcium 6.9 L (8.5-10.1) mg/dL Total Bilirubin 0.9 (0.2-1.0) mg/dL AST 37 (15-37) IU/L ALT 16 (14-63) IU/L Alkaline Phosphatase 57 (46-116) U/L Total Protein 4.8 L (6.4-8.2) g/dL Albumin 2.1 L (3.4-5.0) g/dL Globulin 2.7 (2.6-4.0) g/dL Albumin/Globulin Ratio 0.8 L (0.9-1.6) Result Diagrams: 12/21/20 06:48 12/21/20 06:48 Sepsis Event Note - Evaluation Sepsis Screening Result: No Definite Risk - Focused Exam Vital Signs: Vital Signs Temp Temp Pulse Resp BP Pulse Ox 12/21/20 15:29 97.4 F 83 20 142/69 H 99 12/21/20 11:50 97.1 F 75 12 141/58 H 100 12/21/20 07:41 97.8 F 81 14 128/60 98 - Problem List & Annotations (1) Anemia SNOMED Code(s): 874534473 Code(s): D64.9 - ANEMIA, UNSPECIFIED Status: Acute (2) Leukocytosis SNOMED Code(s): 368588897, 314999925 Code(s): D72.829 - ELEVATED WHITE BLOOD CELL COUNT, UNSPECIFIED Status: Acu te (3) Thrombocytopenia SNOMED Code(s): 223314872 Code(s): D69.6 - THROMBOCYTOPENIA, UNSPECIFIED Status: Acute (4) UTI (urinary tract infection) SNOMED Code(s): 36876414 Code(s): N39.0 - URINARY TRACT INFECTION, SITE NOT SPECIFIED Status: Acute (5) Ambulatory dysfunction SNOMED Code(s): 692704662 Code(s): R26.2 - DIFFICULTY IN WALKING, NOT ELSEWHERE CLASSIFIED Status: Acute - Problem List Review Problem List Initiated/Reviewed/Updated: Yes - My Orders Last 24 Hours: My Active Orders 12/22/20 05:11 CBC WITH AUTO DIFF [HEME] AM CMP [COMPREHENSIVE METABOLIC PN,CMP] [CHEM] AM - Plan Plan:: 1. Anemia -The patient has been transfused 3 units of blood collectively. -We will continue to monitor her hemoglobin and hematocrit through a.m. CBC/CMP's 2. Thrombocytopenia -The patient's platelet levels continue to remain decreased despite a platelet transfusion. -We will continue to monitor the patient's platelets through daily CBCs 3. UTI -The patient on Zosyn 2.25 g per IV route every 6 hours. -We will continue to monitor patient's white blood cell status with daily CBCs 4. Ambulatory dysfunction -Continue the patient on physical therapy in order to build her strength <Lacie Lara - Last Filed: 12/23/20 15:28> - Patient Data Vitals - Most Recent: Last Vital Signs Temp 36.5 C 12/22/20 11:00 Pulse 82 12/22/20 11:00 Resp 16 12/22/20 11:00 BP 129/71 12/22/20 11:00 Pulse Ox 98 12/22/20 11:00 Lab Results Last 24 Hours: Laboratory Results - last 24 hr 12/22/20 Range/Units 05:19 Haptoglobin 128 (44-215) mg/dL Med Orders - Current: Current Medications Discontinued Medications Dextrose/Water (50% Dextrose In Water 50 Ml Syringe) 50 ml IVPUSH ASDIRECTED PRN PRN Reason: Hypoglycemia Famotidine (Famotidine 20 Mg/2 Ml Sdv) 20 mg IVPUSH ONETIME ONE Stop: 12/18/20 10:27 Last Admin: 12/18/20 10:36 Dose: 20 mg Documented by: Glucagon (Glucagon,Human Recombinant 1 Mg Vial) 1 mg IM ASDIRECTED PRN PRN Reason: Hypoglycemia Lactated Ringer's (Ringers, Lactated) 1,000 mls @ 999 mls/hr IV ASDIRECTED [facility] Last Admin: 12/18/20 09:03 Dose: 999 mls/hr Documented by: Pantoprazole Sodium 80 mg/ (Sodium Chloride) 20 mls @ 420 mls/hr IVPUSH ONETIME ONE Stop: 12/18/20 10:28 Last Admin: 12/18/20 10:36 Dose: 420 mls/hr Documented by: Ceftriaxone Sodium/Dextrose 1 (gm/ Premix) 50 mls @ 100 mls/hr IV Q24H [facility] Last Admin: 12/19/20 18:40 Dose: 100 mls/hr Documented by: Pantoprazole Sodium 40 mg/ (Sodium Chloride) 10 mls @ 300 mls/hr IV Q24H [facility] Last Admin: 12/22/20 08:50 Dose: 300 mls/hr Documented by: Iron Sucrose 500 mg/ Sodium (Chloride) 525 mls @ 131 mls/hr IV DAILY [facility] Stop: 12/19/20 15:31 Last Admin: 12/19/20 13:28 Dose: 131 mls/hr Documented by: Piperacillin Sod/Tazobactam (Sod 3.375 gm/ Sodium Chloride) 50 mls @ 100 mls/hr IV Q6H [facility] Last Admin: 12/21/20 03:05 Dose: 100 mls/hr Documented by: Sodium Chloride (Normal Saline) 1,000 mls @ 125 mls/hr IV ASDIRECTED [facility] Stop: 12/20/20 03:59 Last Admin: 12/19/20 21:05 Dose: 125 mls/hr Documented by: Piperacillin Sod/Tazobactam (Sod 2.25 gm/ Sodium Chloride) 50 mls @ 100 mls/hr IV Q6H [facility] Last Admin: 12/22/20 10:26 Dose: 100 mls/hr Documented by: Insulin Aspart (Insulin Aspart 100 Units/Ml 3 Ml Pen) 0 unit SUBCUT TIDAC [facility]; Protocol Last Admin: 12/18/20 17:33 Dose: Not Given Documented by: Iopamidol (Iopamidol 755 Mg/Ml 500 Ml Multipack Bottle) 100 ml IVPUSH ONETIME [facility] Stop: 12/18/20 12:22 Last Admin: 12/18/20 12:22 Dose: 100 ml Documented by: Potassium Chloride (Potassium Chloride 20 Meq Tab.Er) 40 meq PO ONETIME ONE Stop: 12/22/20 07:55 Last Admin: 12/22/20 08:50 Dose: 40 meq Documented by: - Patient Data Lab Results Last 24 hrs: Laboratory Results - last 24 hr 12/22/20 Range/Units 05:19 Haptoglobin 128 (44-215) mg/dL Result Diagrams: 12/22/20 05:19 12/22/20 05:19 - Plan Plan:: I have seen and evaluated the patient and agree with the residents note unless specified in my note
[2020-12-22] MEDS: Piperacillin/Tazobactam 2.25 GM in Sodium Chloride 0.9% 50 ML IV SCH ×2 (04:14→10:26)
[2020-12-22 07:28] LABS: BLOOD UREA NITROGEN,BUN 10 mg/dL (7.0-18.0); CHLORIDE,CL 108 mmol/L (98-107); GLUCOSE RANDOM 80 mg/dL (74-106); POTASSIUM,K 3.4 mmol/L (3.5-5.1); SODIUM,NA 141 mmol/L (136-145)
[2020-12-22] MEDS ORDERED: Potassium Chloride 20 MEQ Tab.ER PO ONE (07:54)
[2020-12-22] MEDS: Pantoprazole 40 MG in Sodium Chloride 0.9% 10 ML IV SCH (08:50)
--- NOTE | 2020-12-22 12:02 | PCM.DCSUM1 ---
<Rex Stapleton - Last Filed: 12/22/20 11:53> Discharge Summary - Hospital Course Free Text/Narrative:: The patient is an 85-year-old female, on day 5 of service on the medical floor, who was diagnosed with anemia secondary to blood loss, thrombocytopenia, urinary tract infection, proctitis, ambulatory dysfunction, and hypokalemia. Throughout the patient's hospital course she has been supplied with different blood products, more specifically 3 packed red blood cell units for her anemia and 1 unit of platelets in order to replete her levels. We were able to increase her hemoglobin and platelet levels, however they still remain low and we will be discharging the patient on ferrous sulfate 325 mg per oral route, and suggest she sees a doctor of nurse anesthesia practice on an outpatient basis to address her abnormal blood parameters and splenomegaly that was seen. For her urinary tract infection and proctitis, the patient will be discharged on oral Augmentin therapy. For her ambulatory dysfunction, physical therapy has signed off on this patient and has encouraged her to use her 4 wheeled walker at home when performing her activities of daily living. For her hypokalemia the patient was given a 40 mEq dose of potassium chloride per oral route before discharge, and was encouraged to eat foods high in potassium such as bananas. The patient also has been prescribed pantoprazole 40 mg per oral route once a day, and been given a prescription for a follow-up CBC to be done and presented to her PCP. Her new PCP is Dr. STAPLETON who will be working with this patient moving forward with respect to her health concerns. The patient is now ready to be discharged. - Discharge Data Discharge Date: 12/22/20 Discharge Disposition: Home, Self-Care 01 Condition: Fair - Referral to Home Health Primary Care Physician: PCP None - Discharge Diagnosis/Problem(s) (1) Anemia SNOMED Code(s): 198965781 ICD Code: D64.9 - ANEMIA, UNSPECIFIED Status: Acute (2) Leukocytosis SNOMED Code(s): 217380825, 192066731 ICD Code: D72.829 - ELEVATED WHITE BLOOD CELL COUNT, UNSPECIFIED Status: Acute (3) Thrombocytopenia SNOMED Code(s): 920008590 ICD Code: D69.6 - THROMBOCYTOPENIA, UNSPECIFIED Status: Acute (4) UTI (urinary tract infection) SNOMED Code(s): 38834081 ICD Code: N39.0 - URINARY TRACT INFECTION, SITE NOT SPECIFIED Status: Acute (5) Ambulatory dysfunction SNOMED Code(s): 183315643 ICD Code: R26.2 - DIFFICULTY IN WALKING, NOT ELSEWHERE CLASSIFIED Status: Acute - Patient Summary/Data Consults: Consultations 12/20/20 15:33 Consult to Physical Therapy [PT Evaluation and Treatment] [CONS] Routine 12/21/20 14:30 Consult to Home Health [CONS] Routine - Patient Instructions Diet: Regular Diet as Tolerated Activity: As Tolerated Showering/Bathing: May Shower Other/Special Instructions: -Follow up with your PCP. -For your PCP, Please arrange an appointment with a [employer] for this patient due to low levels of hemoglobin, hematocrit, and splenomegaly. -Your potassium is at lower levels, eat foods rich in potassium such as bananas to keep your levels up. -Use your walker at home - Discharge Plan Prescriptions/Med Rec: Amoxicillin/Potassium Clav [Augmentin 500-125 Tablet] 1 each PO DAILY #7 tablet Ferrous Sulfate 325 mg PO DAILY #60 tablet Pantoprazole Sodium [Protonix] 40 mg PO ACBREAKFAST #30 tablet. Home Medications: Home Meds Amoxicillin/Potassium Clav [Augmentin 500-125 Tablet] 1 each PO DAILY #7 tablet 12/22/20 [Rx] Ferrous Sulfate 325 mg PO DAILY #60 tablet 12/22/20 [Rx] Pantoprazole Sodium [Protonix] 40 mg PO ACBREAKFAST #30 tablet. 12/22/20 [Rx] Patient Handouts: Anemia, Iron tablets, capsules, extended-release tablets, Levofloxacin tablets Forms: ED Department Discharge Referrals: Rex Stapleton MD [Resident] - 12/28/20 2:30 pm - Discharge Summary/Plan Comment DC Time >30 min.: Yes Total # of Minutes for Discharge Time: 35 minutes - Review of Systems General: Denies: Fever, Fatigue, Chills HEENT: Denies: Headaches Pulmonary: Denies: Shortness of Breath, Pleuritic Chest Pain, Cough Cardiovascular: Denies: Chest Pain, Palpitations, Dyspnea on Exertion Gastrointestinal: Denies: Abdominal Pain, Constipation, Diarrhea Genitourinary: Denies: Dysuria - Patient Data Vitals - Most Recent: Last Vital Signs Temp 98.6 F 12/22/20 07:16 Pulse 87 12/22/20 07:16 Resp 16 12/22/20 07:16 BP 137/60 12/22/20 07:16 Pulse Ox 96 12/22/20 07:16 Weight - Most Recent: 46.493 kg I&O - Last 24 hours: Intake & Output 12/21/20 12/22/20 12/22/20 22:59 06:59 14:59 Intake Total 395 272 0507 Output Total 750 1 Balance -395 092 2952 Lab Results - Last 24 hrs: Laboratory Results - last 24 hr 12/22/20 12/22/20 Range/Units 05:19 05:19 WBC 9.33 (4.0-11.0) K/uL RBC 3.27 L (4.30-5.90) M/uL Hgb 7.6 L (12.0-16.0) g/dL Hct 25.6 L (36.0-46.0) % MCV 78.3 L (80.0-98.0) fL MCH 23.2 L (27.0-32.0) pg MCHC 29.7 L (31.0-37.0) g/dL RDW Std Deviation 69.0 H (28.0-62.0) fl RDW Coeff of Chuy 24 H (11.0-15.0) % Plt Count 36 L (150-400) K/uL Add Manual Diff YES Neutrophils % (Manual) 84 H (48.0-80.0) % Band Neutrophils % 4 % Lymphocytes % (Manual) 8 L (16.0-40.0) % Monocytes % (Manual) 4 (0.0-15.0) % Nucleated RBC % 1.2 /100WBC Absolute Seg Neuts 7.8 H (1.4-5.7) Band Neutrophils # 0.4 Lymphocytes # (Manual) 0.7 (0.6-2.4) Monocytes # (Manual) 0.4 (0.0-0.8) Nucleated RBCs # 0 K/uL Sodium 141 (136-145) mmol/L Potassium 3.4 L (3.5-5.1) mmol/L Chloride 108 H (98-107) mmol/L Carbon Dioxide 22.0 (21.0-32.0) mmol/L BUN 10 (7.0-18.0) mg/dL Creatinine 0.7 (0.6-1.0) mg/dL Est Cr Clr Drug Dosing 42.34 mL/min Estimated GFR (MDRD) > 60.0 ml/min Glucose 80 (74-106) mg/dL Calcium 6.9 L (8.5-10.1) mg/dL Total Bilirubin 0.8 (0.2-1.0) mg/dL AST 21 (15-37) IU/L ALT 14 (14-63) IU/L Alkaline Phosphatase 57 (46-116) U/L Lactate Dehydrogenase 322 H (81-234) U/L Total Protein 4.6 L (6.4-8.2) g/dL Albumin 2.1 L (3.4-5.0) g/dL Globulin 2.5 L (2.6-4.0) g/dL Albumin/Globulin Ratio 0.8 L (0.9-1.6) Med Orders - Current: Current Medications Dextrose/Water (50% Dextrose In Water 50 Ml Syringe) 50 ml IVPUSH ASDIRECTED PRN PRN Reason: Hypoglycemia Glucagon (Glucagon,Human Recombinant 1 Mg Vial) 1 mg IM ASDIRECTED PRN PRN Reason: Hypoglycemia Pantoprazole Sodium 40 mg/ (Sodium Chloride) 10 mls @ 300 mls/hr IV Q24H [facility] Last Admin: 12/22/20 08:50 Dose: 300 mls/hr Documented by: Piperacillin Sod/Tazobactam (Sod 2.25 gm/ Sodium Chloride) 50 mls @ 100 mls/hr IV Q6H [facility] Last Admin: 12/22/20 10:26 Dose: 100 mls/hr Documented by: Discontinued Medications Famotidine (Famotidine 20 Mg/2 Ml Sdv) 20 mg IVPUSH ONETIME ONE Stop: 12/18/20 10:27 Last Admin: 12/18/20 10:36 Dose: 20 mg Documented by: Lactated Ringer's (Ringers, Lactated) 1,000 mls @ 999 mls/hr IV ASDIRECTED [facility] Last Admin: 12/18/20 09:03 Dose: 999 mls/hr Documented by: Pantoprazole Sodium 80 mg/ (Sodium Chloride) 20 mls @ 420 mls/hr IVPUSH ONETIME ONE Stop: 12/18/20 10:28 Last Admin: 12/18/20 10:36 Dose: 420 mls/hr Documented by: Ceftriaxone Sodium/Dextrose 1 (gm/ Premix) 50 mls @ 100 mls/hr IV Q24H [facility] Last Admin: 12/19/20 18:40 Dose: 100 mls/hr Documented by: Iron Sucrose 500 mg/ Sodium (Chloride) 525 mls @ 131 mls/hr IV DAILY [facility] Stop: 12/19/20 15:31 Last Admin: 12/19/20 13:28 Dose: 131 mls/hr Documented by: Piperacillin Sod/Tazobactam (Sod 3.375 gm/ Sodium Chloride) 50 mls @ 100 mls/hr IV Q6H [facility] Last Admin: 12/21/20 03:05 Dose: 100 mls/hr Documented by: Sodium Chloride (Normal Saline) 1,000 mls @ 125 mls/hr IV ASDIRECTED [facility] Stop: 12/20/20 03:59 Last Admin: 12/19/20 21:05 Dose: 125 mls/hr Documented by: Insulin Aspart (Insulin Aspart 100 Units/Ml 3 Ml Pen) 0 unit SUBCUT TIDAC [facility]; Protocol Last Admin: 12/18/20 17:33 Dose: Not Given Documented by: Iopamidol (Iopamidol 755 Mg/Ml 500 Ml Multipack Bottle) 100 ml IVPUSH ONETIME STA Stop: 12/18/20 12:22 Last Admin: 12/18/20 12:22 Dose: 100 ml Documented by: Potassium Chloride (Potassium Chloride 20 Meq Tab.Er) 40 meq PO ONETIME ONE Stop: 12/22/20 07:55 Last Admin: 12/22/20 08:50 Dose: 40 meq Documented by: - Exam General: Reports: Alert, Oriented HEENT: Reports: Mucous Membr. Moist/[place] Neck: Reports: Trachea Midline Lungs: Reports: Clear to Auscultation, Normal Respiratory Effort Cardiovascular: Reports: Regular Rate, Regular Rhythm, No Murmurs GI/Abdominal Exam: Normal Bowel Sounds, Soft, Non-Tender, No Organomegaly <Lacie Lara - Last Filed: 12/23/20 15:41> Discharge Summary - Hospital Course Free Text/Narrative:: I have seen and evaluated the patient and agree with the residents note unless specified in my note - Referral to Home Health Primary Care Physician: PCP None - Patient Summary/Data Consults: Consultations 12/20/20 15:33 Consult to Physical Therapy [PT Evaluation and Treatment] [CONS] Routine 12/21/20 14:30 Consult to Home Health [CONS] Routine - Patient Data Vitals - Most Recent: Last Vital Signs Temp 36.5 C 12/22/20 11:00 Pulse 82 12/22/20 11:00 Resp 16 12/22/20 11:00 BP 129/71 12/22/20 11:00 Pulse Ox 98 12/22/20 11:00 Lab Results - Last 24 hrs: Laboratory Results - last 24 hr 12/22/20 Range/Units 05:19 Haptoglobin 128 (44-215) mg/dL Med Orders - Current: Current Medications Discontinued Medications Dextrose/Water (50% Dextrose In Water 50 Ml Syringe) 50 ml IVPUSH ASDIRECTED PRN PRN Reason: Hypoglycemia Famotidine (Famotidine 20 Mg/2 Ml Sdv) 20 mg IVPUSH ONETIME ONE Stop: 12/18/20 10:27 Last Admin: 12/18/20 10:36 Dose: 20 mg Documented by: Glucagon (Glucagon,Human Recombinant 1 Mg Vial) 1 mg IM ASDIRECTED PRN PRN Reason: Hypoglycemia Lactated Ringer's (Ringers, Lactated) 1,000 mls @ 999 mls/hr IV ASDIRECTED [facility] Last Admin: 12/18/20 09:03 Dose: 999 mls/hr Documented by: Pantoprazole Sodium 80 mg/ (Sodium Chloride) 20 mls @ 420 mls/hr IVPUSH ONETIME ONE Stop: 12/18/20 10:28 Last Admin: 12/18/20 10:36 Dose: 420 mls/hr Documented by: Ceftriaxone Sodium/Dextrose 1 (gm/ Premix) 50 mls @ 100 mls/hr IV Q24H [facility] Last Admin: 12/19/20 18:40 Dose: 100 mls/hr Documented by: Pantoprazole Sodium 40 mg/ (Sodium Chloride) 10 mls @ 300 mls/hr IV Q24H [facility] Last Admin: 12/22/20 08:50 Dose: 300 mls/hr Documented by: Iron Sucrose 500 mg/ Sodium (Chloride) 525 mls @ 131 mls/hr IV DAILY [facility] Stop: 12/19/20 15:31 Last Admin: 12/19/20 13:28 Dose: 131 mls/hr Documented by: Piperacillin Sod/Tazobactam (Sod 3.375 gm/ Sodium Chloride) 50 mls @ 100 mls/hr IV Q6H [facility] Last Admin: 12/21/20 03:05 Dose: 100 mls/hr Documented by: Sodium Chloride (Normal Saline) 1,000 mls @ 125 mls/hr IV ASDIRECTED [facility] Stop: 12/20/20 03:59 Last Admin: 12/19/20 21:05 Dose: 125 mls/hr Documented by: Piperacillin Sod/Tazobactam (Sod 2.25 gm/ Sodium Chloride) 50 mls @ 100 mls/hr IV Q6H [facility] Last Admin: 12/22/20 10:26 Dose: 100 mls/hr Documented by: Insulin Aspart (Insulin Aspart 100 Units/Ml 3 Ml Pen) 0 unit SUBCUT TIDAC [facility]; Protocol Last Admin: 12/18/20 17:33 Dose: Not Given Documented by: Iopamidol (Iopamidol 755 Mg/Ml 500 Ml Multipack Bottle) 100 ml IVPUSH ONETIME STA Stop: 12/18/20 12:22 Last Admin: 12/18/20 12:22 Dose: 100 ml Documented by: Potassium Chloride (Potassium Chloride 20 Meq Tab.Er) 40 meq PO ONETIME ONE Stop: 12/22/20 07:55 Last Admin: 12/22/20 08:50 Dose: 40 meq Documented by:
== END 2020-12-22 12:17 | disposition home or self-care (01) | DRG 812 ==
LOC: MW.ED 08:31 → MW.MS 13:30
PROVIDERS: ADMIT Internal Medicine; ATTEND Internal Medicine
PROC: 30233N1 Transfusion of Nonautologous Red Blood Cells into Peripheral Vein, Percutaneous Approach (ICD-10-PCS; principal; 2020-12-18)
PROC: 30233R1 Transfusion of Nonautologous Platelets into Peripheral Vein, Percutaneous Approach (ICD-10-PCS; 2020-12-18)
DX: D69.6 Thrombocytopenia, unspecified (principal); N39.0 Urinary tract infection, site not specified; D62 Acute posthemorrhagic anemia; K62.89 Other specified diseases of anus and rectum; E87.6 Hypokalemia; D72.829 Elevated white blood cell count, unspecified; E88.09 Other disorders of plasma-protein metabolism, not elsewhere classified; Z79.899 Other long term (current) drug therapy; Z90.49 Acquired absence of other specified parts of digestive tract; Z87.891 Personal history of nicotine dependence; R50.9 Fever, unspecified; Z20.822 Contact with and (suspected) exposure to COVID-19
CPT/HCPCS: 36415; 36430; 71045; 74177; 80053; 80307; 82550; 82728; 83550; 83735; 84443; 84484; 85025; 85610; 86850; 86900; 86901; 86920 ×2; 86921 ×2; 86922 ×2; 93005; 96374; 96375; 99285; C9113; J3490; J7120; P9016; Q9967; U0002; 70450; 70450-26; 80305-QW; 81001; 83010; 83615; 85014; 85018; 85045; 88104; 97161-GP; A9270-GY; J0696; J1756; J2543; J7030; J7040; P9034

== ENCOUNTER 2021-04-05 07:30 | Inpatient (IN) | payer MEDICARE ==
[2021-04-05] MEDS ORDERED: Sodium Chloride 0.9% 1,000 ML IV ONE (08:02)
[2021-04-05] MEDS ORDERED: Sodium Chloride 0.9% 2.5 ML Syringe FLUSH PRN ×2 (08:02→12:59)
[2021-04-05] MEDS ORDERED: Sodium Chloride 0.9% 10 ML Syringe FLUSH PRN (08:02)
[2021-04-05] MEDS ORDERED: Diphtheria,Pertussis(Acell),Tetanus Vaccine 0.5 ML Syringe IM ONE (08:04)
[2021-04-05 09:02] LABS: BLOOD UREA NITROGEN,BUN 23 mg/dL (7.0-18.0); CARBON DIOXIDE,CO2 24.9 mmol/L (21.0-32.0); CHLORIDE,CL 102 mmol/L (98-107); GLUCOSE RANDOM 123 mg/dL (74-106); LIPASE 177 U/L (73-393); POTASSIUM,K 4.1 mmol/L (3.5-5.1); SODIUM,NA 138 mmol/L (136-145)
[2021-04-05] MEDS ORDERED: Ondansetron 4 MG/2 ML SDV IVPUSH PRN (12:59)
[2021-04-05] MEDS ORDERED: Acetaminophen 325 MG Tab PO PRN (12:59)
[2021-04-06 07:06] LABS: BLOOD UREA NITROGEN,BUN 19 mg/dL (7.0-18.0); CARBON DIOXIDE,CO2 22.7 mmol/L (21.0-32.0); CHLORIDE,CL 104 mmol/L (98-107); GLUCOSE RANDOM 108 mg/dL (74-106); POTASSIUM,K 4.2 mmol/L (3.5-5.1); SODIUM,NA 137 mmol/L (136-145)
[2021-04-06] MEDS ORDERED: Iron Polysaccharides Complex 150 MG Cap PO SCH (09:00)
== END 2021-04-06 15:21 | disposition home or self-care (01) | DRG 811 ==
LOC: MW.ED 07:30 → MW.MS 10:04
PROVIDERS: ADMIT Student in an Organized Health Care Education/Training Program; ATTEND Student in an Organized Health Care Education/Training Program
DX: D64.9 Anemia, unspecified (principal); D46.9 Myelodysplastic syndrome, unspecified; S09.8XXA Other specified injuries of head, initial encounter; W19.XXXA Unspecified fall, initial encounter; H53.8 Other visual disturbances; U07.1 COVID-19; S05.11XA Contusion of eyeball and orbital tissues, right eye, initial encounter; R26.2 Difficulty in walking, not elsewhere classified; D69.6 Thrombocytopenia, unspecified; D50.9 Iron deficiency anemia, unspecified; W18.30XA Fall on same level, unspecified, initial encounter; Y92.009 Unspecified place in unspecified non-institutional (private) residence as the place of occurrence of the external cause; Z90.49 Acquired absence of other specified parts of digestive tract
CPT/HCPCS: 36415; 36430; 70450; 71045; 80053; 82607; 82728; 82746; 83550; 83605; 83690; 84484; 85025; 85045; 85610; 86850; 86900; 86901; 86920; 87040 ×2; 90715; 93005; J7030; P9016; U0002; 80048; 81001; 85014; 85018; 90471; 97161-GP; 99285-25; A9270-GY; Q0138

== ENCOUNTER 2021-12-04 15:18 | Inpatient (IN) | payer MEDICARE ==
[2021-12-04 16:06] LABS: BLOOD UREA NITROGEN,BUN 19 mg/dL (7.0-18.0); CARBON DIOXIDE,CO2 24.8 mmol/L (21.0-32.0); CHLORIDE,CL 99 mmol/L (98-107); GLUCOSE RANDOM 105 mg/dL (74-106); POTASSIUM,K 4.3 mmol/L (3.5-5.1); SODIUM,NA 134 mmol/L (136-145)
[2021-12-04 16:11] LABS: ESTIMATED GFR 71 mL/min (>60)
[2021-12-04 16:28] LABS: CORONAVIRUS COVID-19 NAA NEGATIVE (NEGATIVE); INFLUENZA A NAA NEGATIVE (NEGATIVE); INFLUENZA B NAA NEGATIVE (NEGATIVE); RESPIRATORY SYNCYTIAL VIR NAA NEGATIVE (NEGATIVE)
[2021-12-04] MEDS ORDERED: Iopamidol 755 MG/ML 500 ML Multipack Bottle IVPUSH STA (16:48)
[2021-12-04] MEDS: Pantoprazole 40 MG in Sodium Chloride 0.9% 10 ML IVPUSH SCH (19:16)
[2021-12-05 07:35] LABS: CARBON DIOXIDE,CO2 24.5 mmol/L (21.0-32.0)
[2021-12-05] MEDS ORDERED: Ondansetron 4 MG/2 ML SDV IVPUSH PRN (08:08)
[2021-12-05] MEDS ORDERED: Acetaminophen 325 MG Tab PO PRN (08:08)
[2021-12-05] MEDS ORDERED: ferumoxytoL 510 MG in Sodium Chloride 0.9% 100 ML IV ONE (10:00)
[2021-12-05] MEDS: Pantoprazole 40 MG in Sodium Chloride 0.9% 10 ML IVPUSH SCH (18:42)
[2021-12-06 06:19] LABS: CARBON DIOXIDE,CO2 27.1 mmol/L (21.0-32.0); POTASSIUM,K 3.9 mmol/L (3.5-5.1)
== END 2021-12-06 12:21 | disposition home health service (06) | DRG 812 ==
LOC: MW.ED 15:18 → MW.MS 18:05 → MW.ICU 12-05 21:33
PROVIDERS: ADMIT Internal Medicine; ATTEND Internal Medicine
PROC: 30233N1 Transfusion of Nonautologous Red Blood Cells into Peripheral Vein, Percutaneous Approach (ICD-10-PCS; principal; 2021-12-04)
DX: D50.9 Iron deficiency anemia, unspecified (principal); D69.6 Thrombocytopenia, unspecified; R26.2 Difficulty in walking, not elsewhere classified; Z20.822 Contact with and (suspected) exposure to COVID-19; Z90.49 Acquired absence of other specified parts of digestive tract; Z79.899 Other long term (current) drug therapy
CPT/HCPCS: 0241U; 36415; 36430; 73070-26-RT; 73070-RT; 73501-26-RT; 73501-RT; 74177; 74177-26; 80048; 80053; 80307; 81001; 82550; 83550; 83735; 84100; 84443; 84484; 85014; 85018; 85025; 85384; 85610; 86850; 86900; 86901; 86920; 93005; 93010; 96374; 97161-GP; 99285; 99285-25; C9113; J3490; P9016; Q0138; Q9967

== ENCOUNTER 2021-12-22 15:39 | Emergency (ER) | payer MEDICARE | END 2021-12-22 18:30 | LOC: MW.ED 15:39 | DX: I62.00 Nontraumatic subdural hemorrhage, unspecified (principal); Z20.822 Contact with and (suspected) exposure to COVID-19 | CPT/HCPCS: 36415; 70450; 83735; 84484; 85025; 85610; 85730; 86850; 86900; 86901; 86920; 93005; 96365; 99291; J1953; U0002; 93010 ==

== ENCOUNTER 2022-01-15 19:02 | Observation (INO) | payer MEDICARE ==
[2022-01-15] MEDS ORDERED: Sodium Chloride 0.9% 1,000 ML IV SCH (23:00)
[2022-01-15] MEDS ORDERED: Albuterol/Ipratropium 3.0-0.5 MG/3 ML Neb Soln NEB PRN (23:17)
[2022-01-15] MEDS ORDERED: Ondansetron 4 MG/2 ML SDV IVPUSH PRN (23:18)
[2022-01-15] MEDS ORDERED: Pantoprazole 40 MG in Sodium Chloride 0.9% 10 ML IVPUSH ONE (23:30)
[2022-01-16 06:29] LABS: CARBON DIOXIDE,CO2 25.6 mmol/L (21.0-32.0)
[2022-01-16] MEDS ORDERED: Pantoprazole 40 MG in Sodium Chloride 0.9% 10 ML IVPUSH SCH (07:30)
[2022-01-16] MEDS ORDERED: Acetaminophen 325 MG Tab PO PRN (07:50)
[2022-01-16] MEDS ORDERED: Sodium Chloride 0.9% 10 ML Syringe FLUSH PRN (07:52)
[2022-01-16] MEDS ORDERED: Docusate Sodium 100 MG Cap PO PRN (07:52)
[2022-01-16] MEDS ORDERED: Sodium Chloride 0.9% 2.5 ML Syringe FLUSH PRN (07:52)
[2022-01-16] MEDS ORDERED: Magnesium Sulfate/Water 2 GM in Premix Bag 1 BAG IV ONE (08:39)
[2022-01-16] MEDS ORDERED: levETIRAcetam 500 MG Tab PO SCH (11:00)
[2022-01-17] MEDS ORDERED: Iron Polysaccharides Complex 150 MG Cap PO SCH (09:00)
== END 2022-01-16 14:30 ==
LOC: MW.ED 19:02 → MW.MS 22:50
PROVIDERS: ADMIT Student in an Organized Health Care Education/Training Program; ATTEND Student in an Organized Health Care Education/Training Program
DX: S70.02XA Contusion of left hip, initial encounter (principal); D64.9 Anemia, unspecified; F03.A0 Unspecified dementia, mild, without behavioral disturbance, psychotic disturbance, mood disturbance, and anxiety; I62.03 Nontraumatic chronic subdural hemorrhage; D69.6 Thrombocytopenia, unspecified; W19.XXXA Unspecified fall, initial encounter; Z86.16 Personal history of COVID-19; Z79.899 Other long term (current) drug therapy; Z90.49 Acquired absence of other specified parts of digestive tract; Z20.822 Contact with and (suspected) exposure to COVID-19
CPT/HCPCS: 36415; 36430; 70450; 73502; 80053; 83735; 84100; 85025; 86850; 86900; 86901; 86920; 96365; 96366; 96375; 96376; A9270; C9113; G0378; J3475; J3490; J7030; P9016; U0002; 99285

== ENCOUNTER 2022-03-01 17:09 | Inpatient (IN) | payer MEDICARE ==
[2022-03-01 21:26] LABS: BLOOD UREA NITROGEN,BUN 19 mg/dL (7.0-18.0); CARBON DIOXIDE,CO2 27.3 mmol/L (21.0-32.0); CHLORIDE,CL 99 mmol/L (98-107); GLUCOSE RANDOM 105 mg/dL (74-106); POTASSIUM,K 4.1 mmol/L (3.5-5.1); SODIUM,NA 133 mmol/L (136-145)
[2022-03-01 21:27] LABS: ESTIMATED GFR 71 mL/min (>60)
[2022-03-01] MEDS ORDERED: Ondansetron 4 MG/2 ML SDV IVPUSH PRN (23:23)
[2022-03-02 06:21] LABS: BLOOD UREA NITROGEN,BUN 17 mg/dL (7.0-18.0); CARBON DIOXIDE,CO2 26.4 mmol/L (21.0-32.0); CHLORIDE,CL 101 mmol/L (98-107); GLUCOSE RANDOM 82 mg/dL (74-106); POTASSIUM,K 3.9 mmol/L (3.5-5.1); SODIUM,NA 134 mmol/L (136-145)
[2022-03-02 06:35] LABS: ESTIMATED GFR 71 mL/min (>60)
[2022-03-02] MEDS: Pantoprazole 40 MG in Sodium Chloride 0.9% 10 ML IVPUSH SCH ×2 (08:27→20:21)
[2022-03-02] MEDS: ARIPiprazole 10 MG Tab PO SCH (10:16)
[2022-03-02] MEDS: levETIRAcetam 500 MG Tab PO SCH ×3 (10:16→20:33)
[2022-03-03 07:52] LABS: POTASSIUM,K 4.4 mmol/L (3.5-5.1)
[2022-03-03] MEDS: ARIPiprazole 10 MG Tab PO SCH (08:26)
[2022-03-03] MEDS: levETIRAcetam 500 MG Tab PO SCH ×2 (08:26→19:59)
[2022-03-03] MEDS: Pantoprazole 40 MG in Sodium Chloride 0.9% 10 ML IVPUSH SCH ×2 (08:26→19:53)
[2022-03-03] MEDS ORDERED: Albuterol/Ipratropium 3.0-0.5 MG/3 ML Neb Soln NEB PRN (19:07)
[2022-03-04] MEDS: levETIRAcetam 500 MG Tab PO SCH ×2 (08:48→20:44)
[2022-03-04] MEDS: ARIPiprazole 10 MG Tab PO SCH (08:48)
[2022-03-04] MEDS: Pantoprazole 40 MG in Sodium Chloride 0.9% 10 ML IVPUSH SCH ×2 (08:48→20:45)
[2022-03-04 09:55] LABS: CARBON DIOXIDE,CO2 26.1 mmol/L (21.0-32.0); POTASSIUM,K 4.2 mmol/L (3.5-5.1)
[2022-03-05] MEDS ORDERED: Pantoprazole 40 MG Tab.CR PO SCH (08:06)
[2022-03-05] MEDS: ARIPiprazole 10 MG Tab PO SCH (08:31)
[2022-03-05] MEDS: levETIRAcetam 500 MG Tab PO SCH (08:31)
[2022-03-05] MEDS: Pantoprazole 40 MG in Sodium Chloride 0.9% 10 ML IVPUSH SCH (09:16)
== END 2022-03-05 11:47 | DRG 812 ==
LOC: MW.ED 17:09 → MW.ICU 22:54 → OBSVTOIN 22:55 → MW.MS 03-02 19:48
PROVIDERS: ADMIT Student in an Organized Health Care Education/Training Program; ATTEND Student in an Organized Health Care Education/Training Program
PROC: 30233N1 Transfusion of Nonautologous Red Blood Cells into Peripheral Vein, Percutaneous Approach (ICD-10-PCS; principal; 2022-03-01)
PROC: 30233R1 Transfusion of Nonautologous Platelets into Peripheral Vein, Percutaneous Approach (ICD-10-PCS; 2022-03-01)
DX: D64.9 Anemia, unspecified (principal); D46.9 Myelodysplastic syndrome, unspecified; D69.6 Thrombocytopenia, unspecified; Z20.822 Contact with and (suspected) exposure to COVID-19; F03.A0 Unspecified dementia, mild, without behavioral disturbance, psychotic disturbance, mood disturbance, and anxiety; D63.8 Anemia in other chronic diseases classified elsewhere; Z79.899 Other long term (current) drug therapy; Z90.49 Acquired absence of other specified parts of digestive tract; S06.5X9D Traumatic subdural hemorrhage with loss of consciousness of unspecified duration, subsequent encounter
CPT/HCPCS: 36415; 80053; 83550; 85025; 85610; 86850; 86900; 86901; 86920 ×3; 99284; U0002; 36430; 80048; 82272; 83735; 84100; 85018; 85027; 87338; 96374; 96376; A9270-GY; C9113; G0378; J3490; P9016; P9034

== ENCOUNTER 2022-03-19 08:11 | Observation (INO) | payer MEDICARE ==
[2022-03-19] MEDS ORDERED: Sodium Chloride 0.9% 2.5 ML Syringe FLUSH PRN ×2 (08:18→10:26)
[2022-03-19] MEDS ORDERED: Sodium Chloride 0.9% 10 ML Syringe FLUSH PRN ×2 (08:18→10:26)
[2022-03-19 09:40] LABS: CARBON DIOXIDE,CO2 22.2 mmol/L (21.0-32.0); POTASSIUM,K 3.8 mmol/L (3.5-5.1)
[2022-03-19 09:41] LABS: CORONAVIRUS COVID-19 NAA NEGATIVE (NEGATIVE); INFLUENZA A NAA NEGATIVE (NEGATIVE); INFLUENZA B NAA NEGATIVE (NEGATIVE)
[2022-03-19] MEDS ORDERED: Ondansetron 4 MG/2 ML SDV IVPUSH PRN (10:26)
== END 2022-03-19 17:10 ==
LOC: MW.ED 08:11 → MW.MS 09:48
PROVIDERS: ADMIT Student in an Organized Health Care Education/Training Program; ATTEND Student in an Organized Health Care Education/Training Program
DX: D46.9 Myelodysplastic syndrome, unspecified (principal); Z20.822 Contact with and (suspected) exposure to COVID-19; Z79.899 Other long term (current) drug therapy; Z90.49 Acquired absence of other specified parts of digestive tract
CPT/HCPCS: 0240U; 36415; 36430; 80053; 85025; 86850; 86900; 86901; 86920; 99284; G0378; J3490; P9016

== ENCOUNTER 2022-04-01 17:27 | Emergency (ER) | payer MEDICARE ==
[2022-04-01] MEDS ORDERED: Sodium Chloride 0.9% 2.5 ML Syringe FLUSH PRN (19:27)
[2022-04-01] MEDS ORDERED: Sodium Chloride 0.9% 10 ML Syringe FLUSH PRN (19:27)
[2022-04-01 20:34] LABS: BLOOD UREA NITROGEN,BUN 26 mg/dL (7.0-18.0); CARBON DIOXIDE,CO2 26.7 mmol/L (21.0-32.0); CHLORIDE,CL 101 mmol/L (98-107); GLUCOSE RANDOM 112 mg/dL (74-106); SODIUM,NA 136 mmol/L (136-145)
[2022-04-01 20:42] LABS: ESTIMATED GFR 62 mL/min (>60)
== END 2022-04-01 23:11 | disposition home or self-care (01) ==
LOC: MW.ED 17:27
DX: D63.8 Anemia in other chronic diseases classified elsewhere (principal); D46.9 Myelodysplastic syndrome, unspecified; D69.6 Thrombocytopenia, unspecified; Z79.899 Other long term (current) drug therapy; Z90.49 Acquired absence of other specified parts of digestive tract
CPT/HCPCS: 36415; 36430; 80053; 85025; 86850; 86900; 86901; 86920; 99284; J3490; P9016; 99283

== ENCOUNTER 2022-06-03 13:50 | Emergency (ER) | payer MEDICARE ==
[2022-06-03 17:11] LABS: POTASSIUM,K 4.2 mmol/L (3.5-5.1)
== END 2022-06-03 22:25 ==
LOC: MW.ED 13:50
DX: D46.9 Myelodysplastic syndrome, unspecified (principal)
CPT/HCPCS: 36415; 36430; 80053; 85025; 86850; 86900; 86901; 86920; 99284; P9016; 99285

== ENCOUNTER 2022-06-22 00:08 | Emergency (ER) | payer MEDICARE ==
[2022-06-22] MEDS ORDERED: Sodium Chloride 0.9% 10 ML Syringe FLUSH PRN (00:17)
[2022-06-22] MEDS ORDERED: Sodium Chloride 0.9% 2.5 ML Syringe FLUSH PRN (00:17)
[2022-06-22 01:13] LABS: CARBON DIOXIDE,CO2 25.6 mmol/L (21.0-32.0); POTASSIUM,K 4.5 mmol/L (3.5-5.1)
[2022-06-22] MEDS ORDERED: cefTRIAXone 1 GM in Sodium Chloride 0.9% 50 ML IV ONE (02:18)
== END 2022-06-22 03:27 | disposition home or self-care (01) ==
LOC: MW.ED 00:08
DX: N93.9 Abnormal uterine and vaginal bleeding, unspecified (principal); N39.0 Urinary tract infection, site not specified; Z79.899 Other long term (current) drug therapy
CPT/HCPCS: 36415; 80053; 81001; 85025; 96365; 99284; J0696; J3490; J7050; 99283

== ENCOUNTER 2022-09-01 13:27 | Emergency (ER) | payer MEDICARE ==
[2022-09-01 14:07] LABS: HEMATOCRIT 24.8 % (36.0-46.0); MEAN CORPUSCULAR HEMOGLOBIN 28.2 pg (27.0-32.0); MEAN CORPUSCULAR HGB CONC 32.3 g/dL (31.0-37.0); MEAN CORPUSCULAR VOLUME 87.3 fL (80.0-98.0); PLATELET COUNT,PLT 25 K/uL (150-400); RED BLOOD CELL COUNT 2.84 M/uL (4.30-5.90); WHITE BLOOD CELL COUNT,WBC 11.66 K/uL (4.0-11.0)
[2022-09-01 14:23] LABS: A/G RATIO 0.7 (0.9-1.6); ALANINE AMINOTRANSFERASE,ALT 8 IU/L (14-63); ALBUMIN 2.6 g/dL (3.4-5.0); ALKALINE PHOSPHATASE 54 U/L (46-116); ASPARTATE AMNIOTRANSFERASE,AST 11 IU/L (15-37); BILIRUBIN TOTAL 0.4 mg/dL (0.2-1.0); BLOOD UREA NITROGEN,BUN 26 mg/dL (7.0-18.0); CALCIUM 8.2 mg/dL (8.5-10.1); CARBON DIOXIDE,CO2 27.2 mmol/L (21.0-32.0); CHLORIDE,CL 105 mmol/L (98-107); CREATININE 0.9 mg/dL (0.6-1.0); GLUCOSE RANDOM 137 mg/dL (74-106); POTASSIUM,K 4.2 mmol/L (3.5-5.1); PROTEIN TOTAL,TP 6.1 g/dL (6.4-8.2); SODIUM,NA 140 mmol/L (136-145)
[2022-09-01 14:24] LABS: ESTIMATED GFR 61 mL/min (>60)
[2022-09-01 14:44] LABS: APPEARANCE,URINE CLOUDY; BILIRUBIN,URINE NEGATIVE (NEGATIVE); COLOR,URINE YELLOW; GLUCOSE,URINE NEGATIVE (NEGATIVE); KETONES,URINE NEGATIVE (NEGATIVE); LEUKOCYTE ESTERASE,URINE LARGE (NEGATIVE); NITRITE,URINE POSITIVE (NEGATIVE); OCCULT BLOOD,URINE MODERATE (NEGATIVE); PH,URINE 5.5 (5.0-8.0); PROTEIN,URINE NEGATIVE (NEGATIVE); UROBILINOGEN,URINE 0.2 EU/dL (<2.0)
[2022-09-01] MEDS ORDERED: cefTRIAXone 1 GM Vial IM ONE (14:55)
[2022-09-01 14:56] LABS: BAND ABSOLUTE MAN 0.2; BAND PERCENT MAN 2 %; BASOPHILS ABSOLUTE MAN 0.1 (0.0-0.1); BASOPHILS PERCENT MAN 1 % (0.0-1.5); LYMPHOCYTES ABSOLUTE MAN 2.2 (0.6-2.4); LYMPHOCYTES PERCENT MAN 19 % (16.0-40.0); METAMYELOCYTE ABSOLUTE MAN 0.3; METAMYELOCYTE PERCENT MAN 3 %; MONOCYTES PERCENT MAN 9 % (0.0-15.0); MYELOCYTE ABSOLUTE MAN 0.1; MYELOCYTE PERCENT MAN 1 %; SEG NEUTROPHILS ABSOLUTE MAN 7.6 (1.4-5.7); SEG NEUTROPHILS PERCENT MAN 65 % (48.0-80.0)
[2022-09-01] MEDS ORDERED: Lidocaine 1% PF 2 ML SDV INJECT ONE (14:56)
[2022-09-01 14:57] LABS: BACTERIA,URINE 2+ (NEGATIVE); EPITHELIAL CELLS,URINE RARE (NONE-FEW); WBC,URINE TO NUMEROUS TO COUNT (0-5/HPF)
[2022-09-01 14:58] LABS: NRBC MANUAL 4 %; TEARDROP CELLS FEW
[2022-09-01 14:59] LABS: PLATELET COUNT ESTIMATE MARKED DEC
== END 2022-09-01 15:36 | disposition home or self-care (01) ==
LOC: MW.ED 13:27
DX: N39.0 Urinary tract infection, site not specified (principal); R31.9 Hematuria, unspecified; D64.9 Anemia, unspecified; Z79.899 Other long term (current) drug therapy
CPT/HCPCS: 36415; 80053; 81001; 85025; 87086; 96372; 99283; J0696; 87088; 87186; J3490

== ENCOUNTER 2023-01-01 19:39 | Observation (INO) | payer MEDICARE ==
[2023-01-01] MEDS ORDERED: Sodium Chloride 0.9% 2.5 ML Syringe FLUSH PRN (20:04)
[2023-01-01] MEDS ORDERED: Sodium Chloride 0.9% 10 ML Syringe FLUSH PRN (20:04)
[2023-01-01] MEDS ORDERED: Sodium Chloride 0.9% 500 ML IV SCH (20:15)
[2023-01-01 20:16] LABS: HEMATOCRIT 24.5 % (37.0-47.0); MEAN CORPUSCULAR HEMOGLOBIN 27.1 pg (28.0-32.0); MEAN CORPUSCULAR HGB CONC 32.7 g/dL (32.0-36.0); MEAN CORPUSCULAR VOLUME 83.1 fL (83.0-99.0); NRBC ABSOLUTE 0.19 K/uL (0.00-0.02); NRBC PERCENT 1.3 /100WBC (0.0-0.2); PLATELET COUNT,PLT 33 K/uL (150-400); RED BLOOD CELL COUNT 2.95 M/uL (4.10-5.30); WHITE BLOOD CELL COUNT,WBC 14.57 K/uL (3.9-11.3)
[2023-01-01 20:34] LABS: INR 1.02 (0.86-1.11)
[2023-01-01 20:41] LABS: A/G RATIO 0.8 (0.9-1.6); ALBUMIN 3.4 g/dL (3.4-5.0); BILIRUBIN TOTAL 0.5 mg/dL (0.2-1.0); CALCIUM 9.3 mg/dL (8.5-10.1); CARBON DIOXIDE,CO2 24.9 mmol/L (21.0-32.0); CREATININE 1.2 mg/dL (0.6-1.0); EST CRCL DRUG DOSING (CG) 24.45 mL/min; POTASSIUM,K 4.1 mmol/L (3.5-5.1); PROTEIN TOTAL,TP 7.6 g/dL (6.4-8.2)
[2023-01-01 21:06] LABS: BAND ABSOLUTE MAN 0.3; BAND PERCENT MAN 2 %
[2023-01-01 21:07] LABS: LYMPHOCYTES ABSOLUTE MAN 2.8 (0.6-2.4); LYMPHOCYTES PERCENT MAN 19 % (16.0-40.0); METAMYELOCYTE ABSOLUTE MAN 0.1; METAMYELOCYTE PERCENT MAN 1 %; MONOCYTES PERCENT MAN 14 % (0.0-15.0); MYELOCYTE ABSOLUTE MAN 0.4; MYELOCYTE PERCENT MAN 3 %; SEG NEUTROPHILS ABSOLUTE MAN 8.9 (1.4-5.7); SEG NEUTROPHILS PERCENT MAN 61 % (48.0-80.0)
[2023-01-01 21:29] LABS: APPEARANCE,URINE SLT CLOUDY; BILIRUBIN,URINE NEGATIVE (NEGATIVE); COLOR,URINE YELLOW; GLUCOSE,URINE NEGATIVE (NEGATIVE); KETONES,URINE NEGATIVE (NEGATIVE); LEUKOCYTE ESTERASE,URINE TRACE (NEGATIVE); NITRITE,URINE POSITIVE (NEGATIVE); OCCULT BLOOD,URINE MODERATE (NEGATIVE); PROTEIN,URINE TRACE mg/dL (NEGATIVE); UROBILINOGEN,URINE 0.2 EU/dL (<2.0)
[2023-01-01] MEDS ORDERED: Octyl 2-Cyanoacrylate 1 g/1 mL 1 APPLIC PEN TOP STA (21:31)
[2023-01-01 21:41] LABS: BACTERIA,URINE 4+ (NEGATIVE); EPITHELIAL CELLS,URINE FEW (NONE-FEW); MUCUS,URINE LIGHT (NONE-MOD)
[2023-01-01] MEDS ORDERED: cefTRIAXone 1 GM in Sodium Chloride 0.9% 50 ML IV ONE (22:34)
[2023-01-02] MEDS ORDERED: Acetaminophen 325 MG Tab PO PRN (02:49)
[2023-01-02 06:05] LABS: HEMATOCRIT 22.1 % (37.0-47.0); HEMOGLOBIN 7.2 g/dL (12.0-16.0); MEAN CORPUSCULAR HEMOGLOBIN 26.9 pg (28.0-32.0); MEAN CORPUSCULAR HGB CONC 32.6 g/dL (32.0-36.0); MEAN CORPUSCULAR VOLUME 82.5 fL (83.0-99.0); PLATELET COUNT,PLT 25 K/uL (150-400); RED BLOOD CELL COUNT 2.68 M/uL (4.10-5.30); WHITE BLOOD CELL COUNT,WBC 11.92 K/uL (3.9-11.3)
[2023-01-02 06:53] LABS: BAND PERCENT MAN 8 %; LYMPHOCYTES ABSOLUTE MAN 1.9 (0.6-2.4); LYMPHOCYTES PERCENT MAN 16 % (16.0-40.0); METAMYELOCYTE ABSOLUTE MAN 0.6; METAMYELOCYTE PERCENT MAN 5 %; MONOCYTES PERCENT MAN 8 % (0.0-15.0); MYELOCYTE ABSOLUTE MAN 0.4; MYELOCYTE PERCENT MAN 3 %; SEG NEUTROPHILS ABSOLUTE MAN 7.2 (1.4-5.7); SEG NEUTROPHILS PERCENT MAN 60 % (48.0-80.0)
[2023-01-02] MEDS ORDERED: Docusate Sodium 100 MG Cap PO PRN (09:36)
[2023-01-02] MEDS ORDERED: Sodium Chloride 0.9% 10 ML Syringe FLUSH PRN (09:36)
[2023-01-02] MEDS ORDERED: Polyethylene Glycol 3350 Powder 17 GM Packet PO PRN (09:36)
[2023-01-02] MEDS ORDERED: Sodium Chloride 0.9% 2.5 ML Syringe FLUSH PRN (09:36)
[2023-01-02] MEDS ORDERED: Ondansetron 4 MG/2 ML SDV IVPUSH PRN (09:36)
[2023-01-02] MEDS ORDERED: traMADol 50 MG Tab PO PRN (10:36)
[2023-01-02] MEDS: Iron Polysaccharides Complex 150 MG Cap PO SCH (10:38)
[2023-01-02] MEDS: levETIRAcetam 500 MG Tab PO SCH ×2 (11:10→20:39)
[2023-01-02] MEDS: ARIPiprazole 10 MG Tab PO SCH (11:10)
[2023-01-02 14:40] LABS: HEMATOCRIT 22.7 % (37.0-47.0); HEMOGLOBIN 7.2 g/dL (12.0-16.0)
[2023-01-02] MEDS: Pantoprazole 40 MG Tab.CR PO SCH (16:50)
[2023-01-02] MEDS ORDERED: cefTRIAXone 1 GM in Sodium Chloride 0.9% 50 ML IV SCH (23:00)
[2023-01-03 05:57] LABS: HEMATOCRIT 18.8 % (37.0-47.0); MEAN CORPUSCULAR HEMOGLOBIN 26.4 pg (28.0-32.0); MEAN CORPUSCULAR HGB CONC 31.9 g/dL (32.0-36.0); MEAN CORPUSCULAR VOLUME 82.8 fL (83.0-99.0); MEAN PLATELET VOLUME 10.3 fL (9.4-12.3); NRBC ABSOLUTE 0.11 K/uL (0.00-0.02); NRBC PERCENT 1.2 /100WBC (0.0-0.2); PLATELET COUNT,PLT 92 K/uL (150-400); RED BLOOD CELL COUNT 2.27 M/uL (4.10-5.30); WHITE BLOOD CELL COUNT,WBC 9.52 K/uL (3.9-11.3)
[2023-01-03 06:14] LABS: CALCIUM 8.6 mg/dL (8.5-10.1); CARBON DIOXIDE,CO2 26.7 mmol/L (21.0-32.0); CREATININE 0.9 mg/dL (0.6-1.0); EST CRCL DRUG DOSING (CG) 35.39 mL/min; POTASSIUM,K 3.8 mmol/L (3.5-5.1)
[2023-01-03] MEDS: Pantoprazole 40 MG Tab.CR PO SCH (06:55)
[2023-01-03 07:58] LABS: BAND ABSOLUTE MAN 0.6; BAND PERCENT MAN 6 %; LYMPHOCYTES ABSOLUTE MAN 1.1 (0.6-2.4); LYMPHOCYTES PERCENT MAN 12 % (16.0-40.0); MONOCYTES ABSOLUTE MAN 0.8 (0.0-0.8); MONOCYTES PERCENT MAN 8 % (0.0-15.0); SEG NEUTROPHILS ABSOLUTE MAN 5.3 (1.4-5.7); SEG NEUTROPHILS PERCENT MAN 56 % (48.0-80.0)
[2023-01-03 07:59] LABS: BASOPHILS ABSOLUTE MAN 0.1 (0.0-0.1); BASOPHILS PERCENT MAN 1 % (0.0-1.5); METAMYELOCYTE PERCENT MAN 11 %; MYELOCYTE ABSOLUTE MAN 0.6; MYELOCYTE PERCENT MAN 6 %
[2023-01-03] MEDS: ARIPiprazole 10 MG Tab PO SCH (09:50)
[2023-01-03] MEDS: Iron Polysaccharides Complex 150 MG Cap PO SCH (09:50)
[2023-01-03] MEDS: levETIRAcetam 500 MG Tab PO SCH (09:50)
== END 2023-01-03 15:15 ==
LOC: MW.ED 19:39 → MW.MS 01-02 00:36
PROVIDERS: ADMIT Family Medicine; ATTEND Family Medicine
DX: S06.5X9A Traumatic subdural hemorrhage with loss of consciousness of unspecified duration, initial encounter (principal); G30.9 Alzheimer's disease, unspecified; F02.A0 Dementia in other diseases classified elsewhere, mild, without behavioral disturbance, psychotic disturbance, mood disturbance, and anxiety; K21.9 Gastro-esophageal reflux disease without esophagitis; D46.9 Myelodysplastic syndrome, unspecified; D69.6 Thrombocytopenia, unspecified; N30.01 Acute cystitis with hematuria; Z98.890 Other specified postprocedural states; Z79.899 Other long term (current) drug therapy; W19.XXXA Unspecified fall, initial encounter
CPT/HCPCS: 36415; 36430; 70450; 71045; 72125; 73070; 73110; 80048; 80053; 81001; 83605; 83690; 84484; 85007; 85014; 85018; 85025; 85027; 85610; 86850; 86900; 86901; 86920; 86921; 86922; 87086; 93005; 96361; 96365; 97162; 99285; A9270; J0696; J3490; J7040; P9016; P9034; 87088; 87186; 93010; 96376; 99223; 99238; 99283; G0378